=== PATIENT | female | born 1965 | race Caucasian/White ===

== ENCOUNTER 2017-10-15 01:33 | Emergency (ER) | payer SELFPAY ==
[2017-10-15] MEDS ORDERED: ASPIRIN PO ONE (02:28)
[2017-10-15] MEDS ORDERED: TYLENOL PO ONE (02:29)
--- NOTE | 2017-10-15 03:00 | Cat Scan Report ---
FINAL REPORT PROCEDURE: CT HEAD/BRAIN WO CON TECHNIQUE: Computerized tomography of the head was performed without contrast material. HISTORY: headache COMPARISON: No prior studies are available for comparison. FINDINGS: Skull and scalp: Normal. Paranasal sinuses: Normal. Ventricles and subarachnoid spaces: Normal. Cerebrum: No evidence of hemorrhage, acute infarction or mass . Cerebellum and brainstem: No evidence of hemorrhage, acute infarction or mass. Vasculature: Normal. Comments: None. IMPRESSION: Normal Examination
[2017-10-15 03:32] LABS: BUN/Creatinine Ratio 20; Blood Urea Nitrogen 16 mg/dL (7-17); Calcium 9.4 mg/dL (8.4-10.2); Hemolysis Index 18
[2017-10-15 04:19] LABS: Basophils % (Auto) 0.8 % (0.0-1.8); Eosinophils % (Auto) 1.5 % (0.0-4.3); Hematocrit 38.3 % (30.3-42.9); Hemoglobin 12.8 gm/dl (10.1-14.3); Mean Corpuscular HGB Conc 33 % (30-34); Mean Corpuscular Hemoglobin 28 pg (28-32); Mean Corpuscular Volume 85 fl (79-97); Platelet Count 341 K/mm3 (140-440); Red Blood Count 4.51 M/mm3 (3.65-5.03); Red Cell Distribution Width 13.6 % (13.2-15.2)
[2017-10-15 04:20] LABS: Basophils # (Auto) 0.1 K/mm3 (0.0-0.1); Eosinophils # (Auto) 0.2 K/mm3 (0.0-0.4); Lymphocytes # (Auto) 2.7 K/mm3 (1.2-5.4); Monocytes # (Auto) 0.9 K/mm3 (0.0-0.8)
[2017-10-15] MEDS ORDERED: ASPIRIN ONE (06:01)
--- NOTE | 2017-10-15 06:36 | Emergency Department Report ---
ED Chest Pain HPI - General Chief Complaint: Chest Pain Stated Complaint: CHEST PAIN HEAD PAIN Time Seen by Provider: 10/15/17 06:36 Source: patient Mode of arrival: Ambulatory Limitations: No Limitations - History of Present Illness MD Complaint: chest pain -: Sudden Onset: during rest Pain Location: substernal Pain Radiation: none Severity: mild Severity scale (0 -10): 3 Quality: aching Consistency: intermittent Improves With: nothing Worsens With: nothing Treatments Prior to Arrival: none Aspirin use within the Past 7 Days: (0) No - Related Data Previous Rx's Medication Instructions Recorded Last Taken Type Lisinopril [Zestril TAB] 40 mg PO QDAY #30 tablet 04/27/15 10/14/17 Rx Aspirin [Aspir-Low] 81 mg PO DAILY #30 tablet. 10/15/17 Unknown Rx Lisinopril/Hydrochlorothiazide 1 tab PO QDAY #30 tab 10/15/17 Unknown Rx [Zestoretic 20-25 mg] Allergies Allergy/AdvReac Type Severity Reaction Status Date / Time codeine Allergy Rash Verified 04/25/15 18:54 Heart Score - HEART Score History: Slightly suspicious EKG: Normal Age: 45-65 Risk factors: 1-2 risk factors Troponin: < normal limit HEART Score: 2 - Critical Actions Critical Actions: 0-3 pts:0.9-1.7%risk of adverse cardiac event.Candidate for discharge ED Review of Systems ROS: Stated complaint: CHEST PAIN HEAD PAIN Other details as noted in HPI Comment: All other systems reviewed and negative Constitutional: denies: chills, fever Eyes: denies: eye pain, eye discharge ENT: denies: ear pain, throat pain Respiratory: denies: cough, orthopnea, shortness of breath Cardiovascular: chest pain. denies: palpitations, dyspnea on exertion, orthopnea Endocrine: no symptoms reported Gastrointestinal: denies: abdominal pain, nausea, vomiting, diarrhea Genitourinary: denies: urgency, dysuria, frequency Musculoskeletal: denies: back pain, joint swelling Skin: denies: rash, lesions Neurological: denies: headache, weakness, numbness Psychiatric: denies: anxiety, depression Hematological/Lymphatic: denies: easy bleeding, easy bruising ED Past Medical Hx - Past Medical History Hx Hypertension: Yes Hx Congestive Heart Failure: No Hx Diabetes: No Hx Asthma: No Hx COPD: No - Surgical History Hx Cholecystectomy: Yes Hx Appendectomy: Yes Additional Surgical History: R SHOULDER, L EAR, Hysterectomy - Social History Smoking Status: Never Smoker Substance Use Type: None - Medications Home Medications: Home Medications Medication Instructions Recorded Confirmed Last Taken Type Lisinopril [Zestril TAB] 40 mg PO QDAY #30 tablet 04/27/15 10/15/17 10/14/17 Rx Aspirin [Aspir-Low] 81 mg PO DAILY #30 tablet. 10/15/17 Unknown Rx Lisinopril/Hydrochlorothiazide 1 tab PO QDAY #30 tab 10/15/17 Unknown Rx [Zestoretic 20-25 mg] ED Physical Exam - General Limitations: No Limitations General appearance: alert, in no apparent distress - Head Head exam: Present: atraumatic, normocephalic, normal inspection - Eye Eye exam: Present: normal appearance, PERRL, EOMI Pupils: Present: normal accommodation - ENT ENT exam: Present: normal exam, normal orophraynx, mucous membranes moist - Neck Neck exam: Present: normal inspection, full ROM. Absent: tenderness - Respiratory Respiratory exam: Present: normal lung sounds bilaterally. Absent: respiratory distress, wheezes, rales, rhonchi, stridor - Cardiovascular Cardiovascular Exam: Present: regular rate, normal rhythm, normal heart sounds - GI/Abdominal GI/Abdominal exam: Present: soft, normal bowel sounds. Absent: distended, tenderness, guarding, rebound, rigid - Extremities Exam Extremities exam: Present: normal inspection, full ROM, normal capillary refill. Absent: tenderness - Back Exam Back exam: Present: normal inspection, full ROM. Absent: tenderness - Neurological Exam Neurological exam: Present: alert, oriented X3, CN II-XII intact - Psychiatric Psychiatric exam: Present: normal affect, normal mood - Skin Skin exam: Present: warm, dry, intact, normal color. Absent: rash ED Course Vital Signs 10/15/17 10/15/17 10/15/17 02:20 06:53 06:56 Temperature 98.3 F 97.7 F Pulse Rate 84 68 Respiratory 16 18 Rate Blood Pressure 184/90 Blood Pressure 177/83 [Right] O2 Sat by Pulse 100 99 99 Oximetry 10/15/17 10/15/17 10/15/17 07:00 07:30 07:52 Temperature Pulse Rate 55 L 63 Respiratory 13 13 Rate Blood Pressure 156/86 165/72 172/85 Blood Pressure [Right] O2 Sat by Pulse 97 100 Oximetry 10/15/17 10/15/17 10/15/17 08:00 08:30 09:00 Temperature Pulse Rate 71 67 74 Respiratory 12 13 14 Rate Blood Pressure 172/73 158/85 157/80 Blood Pressure [Right] O2 Sat by Pulse 96 98 100 Oximetry 10/15/17 10/15/17 10/15/17 09:30 10:00 10:30 Temperature Pulse Rate 69 67 63 Respiratory 12 12 13 Rate Blood Pressure 147/77 154/79 158/77 Blood Pressure [Right] O2 Sat by Pulse 99 97 100 Oximetry 10/15/17 10/15/17 10/15/17 11:00 11:30 11:46 Temperature 97.8 F Pulse Rate 72 79 68 Respiratory 14 11 L 16 Rate Blood Pressure 149/83 140/101 Blood Pressure 140/101 [Right] O2 Sat by Pulse 100 97 100 Oximetry GUSTAVO score - Gustavo Score Age > 65: (0) No Aspirin use within the Past 7 Days: (0) No 3 or more CAD Risk Factors: (0) No 2 or more Angina events in past 24 hrs: (0) No Known CAD with more than 50% Stenosis: (0) No Elevated Cardiac Markers: (0) No ST Deviation Greater than 0.5mm: (0) No GUSTAVO Score: 0 ED Medical Decision Making - Lab Data Result diagrams: 10/15/17 03:00 10/15/17 03:00 - EKG Data -: EKG Interpreted by Ma EKG shows normal: sinus rhythm Rate: normal (88) - EKG Data When compared to previous EKG there are: previous EKG unavailable Interpretation: normal EKG, other (No STEMI) - Radiology Data Radiology results: report reviewed, image reviewed - Medical Decision Making Atypical Chest Pain. Hypertension. Critical care attestation.: If time is entered above; I have spent that time in minutes in the direct care of this critically ill patient, excluding procedure time. ED Disposition Clinical Impression: Chest pain Qualifiers: Chest pain type: unspecified Qualified Code(s): R07.9 - Chest pain, unspecified Hypertension Qualifiers: Hypertension type: unspecified Qualified Code(s): I10 - Essential (primary) hypertension Disposition: DC- TO HOME OR SELFCARE Is pt being admited?: No Does the pt Need Aspirin: Yes Condition: Stable Instructions: Chest Pain (ED), Hypertension (ED) Additional Instructions: Please follow up with the [facility] Schuster tomorrow morning. Return to the ED if your condition worsens. Prescriptions: Aspirin [Aspir-Low] 81 mg PO DAILY #30 tablet. Lisinopril/Hydrochlorothiazide [Zestoretic 20-25 mg] 1 tab PO QDAY #30 tab Referrals: PRIMARY CARE, [Primary Care Provider] - 3-5 Days Time of Disposition: 11:17
[2017-10-15] MEDS: ZESTRIL PO ONE ×3 (07:15→07:52)
--- NOTE | 2017-10-15 07:55 | XRay Report ---
AP CHEST: HISTORY: chest pain AP view of the chest demonstrates a normal mediastinal and cardiac contour with clear lungs and normal bony and soft tissue structures. IMPRESSION: Unremarkable AP chest.
[2017-10-15] MEDS ORDERED: TYLENOL ONE (11:31)
[2017-10-15 11:45] VITALS: BP 140/101
== END 2017-10-15 11:45 | disposition home or self-care (01) ==
LOC: ED 01:33
DX: R07.89 Other chest pain (principal); R51 Headache; I10 Essential (primary) hypertension; Z90.89 Acquired absence of other organs; Z90.49 Acquired absence of other specified parts of digestive tract; Z90.710 Acquired absence of both cervix and uterus; Z88.5 Allergy status to narcotic agent
CPT/HCPCS: 36415; 70450; 71045; 80048; 84484; 85025; 93005; 93010

== ENCOUNTER 2018-08-08 21:19 | Emergency (ER) | payer OTHER ==
[2018-08-08 21:39] VITALS: BP 156/87
--- NOTE | 2018-08-08 21:39 | Emergency Department Report ---
ED ENT HPI - General Chief complaint: Dental/Oral Stated complaint: TOOTH/EAR/HEADACHE Time Seen by Provider: 08/08/18 21:35 Source: patient Mode of arrival: Ambulatory Limitations: No Limitations - History of Present Illness Initial comments: 53 y/o female complains of toothache Complete antibiotics 1 week ago. Was seen by dentist and was told that she needed a root cancal. . Has been taking Ibuprofen. Does not have any further appt. MD complaint: tooth pain Location: tooth # Severity: severe Severity scale (0 -10): 10 - Related Data Previous Rx's Medication Instructions Recorded Last Taken Type Acetaminophen [Acetaminophen TAB] 650 mg PO Q4H PRN #10 tablet 02/06/18 Unknown Rx Aspirin 325 mg PO QDAY #30 tablet 02/06/18 Unknown Rx AtorvaSTATin [Lipitor] 40 mg PO QHS #30 tablet 02/06/18 Unknown Rx Lisinopril/Hydrochlorothiazide 1 tab PO QDAY #30 tab 02/06/18 Unknown Rx [Zestoretic 20-25 mg] Allergies Allergy/AdvReac Type Severity Reaction Status Date / Time codeine Allergy Rash Verified 04/25/15 18:54 ED Dental HPI - General Chief complaint: Dental/Oral Stated complaint: TOOTH/EAR/HEADACHE Time Seen by Provider: 08/08/18 21:35 Source: patient Mode of arrival: Ambulatory Limitations: No Limitations - Related Data Previous Rx's Medication Instructions Recorded Last Taken Type Acetaminophen [Acetaminophen TAB] 650 mg PO Q4H PRN #10 tablet 02/06/18 Unknown Rx Aspirin 325 mg PO QDAY #30 tablet 02/06/18 Unknown Rx AtorvaSTATin [Lipitor] 40 mg PO QHS #30 tablet 02/06/18 Unknown Rx Lisinopril/Hydrochlorothiazide 1 tab PO QDAY #30 tab 02/06/18 Unknown Rx [Zestoretic 20-25 mg] Allergies Allergy/AdvReac Type Severity Reaction Status Date / Time codeine Allergy Rash Verified 04/25/15 18:54 ED Review of Systems ROS: Stated complaint: TOOTH/EAR/HEADACHE Other details as noted in HPI Comment: All other systems reviewed and negative ED Past Medical Hx - Past Medical History Previous Medical History?: Yes Hx Hypertension: Yes Hx CVA: (h/o TIAs, most recent oct/nov 2017) Hx Congestive Heart Failure: No Hx Diabetes: No Hx Asthma: No Hx COPD: No - Surgical History Past Surgical History?: Yes Hx Cholecystectomy: Yes Hx Appendectomy: Yes Additional Surgical History: R SHOULDER, L EAR, Hysterectomy - Social History Smoking Status: Never Smoker - Medications Home Medications: Home Medications Medication Instructions Recorded Confirmed Last Taken Type Acetaminophen [Acetaminophen TAB] 650 mg PO Q4H PRN #10 tablet 02/06/18 Unknown Rx Aspirin 325 mg PO QDAY #30 tablet 02/06/18 Unknown Rx AtorvaSTATin [Lipitor] 40 mg PO QHS #30 tablet 02/06/18 Unknown Rx Lisinopril/Hydrochlorothiazide 1 tab PO QDAY #30 tab 02/06/18 Unknown Rx [Zestoretic 20-25 mg] ED Physical Exam - General Limitations: No Limitations General appearance: alert, in no apparent distress - Head Head exam: Present: atraumatic, normocephalic - Eye Eye exam: Present: normal appearance - ENT ENT exam: Present: mucous membranes moist - Expanded ENT Exam Expanded Teeth exam: Present: dental tenderness # (22) - Extremities Exam Extremities exam: Present: normal inspection - Back Exam Back exam: Present: normal inspection - Neurological Exam Neurological exam: Present: alert, oriented X3, normal gait ED Medical Decision Making - Medical Decision Making 53 y/o female come in for tooth ache. Referral to dental clinic. Over the counter pain medications. Critical care attestation.: If time is entered above; I have spent that time in minutes in the direct care of this critically ill patient, excluding procedure time. ED Disposition Clinical Impression: Dental implant pain Disposition: DC- TO HOME OR SELFCARE Is pt being admited?: No Does the pt Need Aspirin: No Condition: Stable Instructions: Toothache (ED) Additional Instructions: Follow up with a dentist. Take over the counter ibuprofen or Tylenol. Referrals: [facility] [Outside] - 3-5 Days [facility] [Outside] - 3-5 Days [facility] [Outside] - 3-5 Days
== END 2018-08-08 21:50 | disposition home or self-care (01) ==
LOC: ED 21:19
DX: M27.69 Other endosseous dental implant failure (principal); I10 Essential (primary) hypertension; Z90.49 Acquired absence of other specified parts of digestive tract; Z90.710 Acquired absence of both cervix and uterus; Z98.890 Other specified postprocedural states; Z79.82 Long term (current) use of aspirin; Z79.899 Other long term (current) drug therapy; Z88.6 Allergy status to analgesic agent
CPT/HCPCS: 99282

== ENCOUNTER 2018-10-15 02:36 | Emergency (ER) | payer OTHER ==
[2018-10-15 03:05] LABS: Basophils # (Auto) 0.1 K/mm3 (0.0-0.1); Basophils % (Auto) 0.8 % (0.0-1.8); Eosinophils # (Auto) 0.1 K/mm3 (0.0-0.4); Eosinophils % (Auto) 1.3 % (0.0-4.3); Hematocrit 37.3 % (30.3-42.9); Hemoglobin 12.6 gm/dl (10.1-14.3); Lymphocytes % (Auto) 33.6 % (13.4-35.0); Mean Corpuscular HGB Conc 34 % (30-34); Mean Corpuscular Volume 85 fl (79-97); Monocytes # (Auto) 0.6 K/mm3 (0.0-0.8); Monocytes % (Auto) 6.6 % (0.0-7.3); Platelet Count 311 K/mm3 (140-440); Red Blood Count 4.39 M/mm3 (3.65-5.03); Red Cell Distribution Width 13.1 % (13.2-15.2)
[2018-10-15 03:32] LABS: Alanine Aminotransferase 10 units/L (7-56); Albumin 3.8 g/dL (3.9-5); BUN/Creatinine Ratio 16; Blood Urea Nitrogen 13 mg/dL (7-17); Calcium 9.2 mg/dL (8.4-10.2); Hemolysis Index 3
[2018-10-15 04:41] LABS: Bilirubin,Urine NEG (Negative); Blood,Urine NEG (Negative); Color,Urine Yellow (Yellow); Mucus,Urine FEW /HPF; Protein,Urine <15 mg/dL mg/dL (Negative); Urobilinogen,Urine < 2.0 mg/dL (<2.0)
[2018-10-15] MEDS ORDERED: MORPHINE IV PRN (05:22)
[2018-10-15] MEDS ORDERED: ZOFRAN IV ONE (05:22)
[2018-10-15] MEDS ORDERED: PEPCID IV ONE (05:22)
--- NOTE | 2018-10-15 07:20 | Emergency Department Report ---
<CAMMY STEIN - Last Filed: 10/15/18 12:03> ED Abdominal Pain HPI - General Chief Complaint: Abdominal Pain Stated Complaint: SEVERE HEADACHE - Related Data Previous Rx's Medication Instructions Recorded Last Taken Type Acetaminophen [Acetaminophen TAB] 650 mg PO Q4H PRN #10 tablet 02/06/18 Unknown Rx Aspirin 325 mg PO QDAY #30 tablet 02/06/18 Unknown Rx AtorvaSTATin [Lipitor] 40 mg PO QHS #30 tablet 02/06/18 Unknown Rx Lisinopril/Hydrochlorothiazide 1 tab PO QDAY #30 tab 02/06/18 Unknown Rx [Zestoretic 20-25 mg] Hyoscyamine Subl [Levsin Sl 0.125 0.125 mg SL Q6HR PRN #20 tab 10/15/18 Unknown Rx TAB] Ondansetron [Zofran ODT TAB] 8 mg PO Q12HR #14 tab.rapdis 10/15/18 Unknown Rx Allergies Allergy/AdvReac Type Severity Reaction Status Date / Time codeine Allergy Rash Verified 04/25/15 18:54 ED Past Medical Hx - Medications Home Medications: Home Medications Medication Instructions Recorded Confirmed Last Taken Type Acetaminophen [Acetaminophen TAB] 650 mg PO Q4H PRN #10 tablet 02/06/18 Unknown Rx Aspirin 325 mg PO QDAY #30 tablet 02/06/18 Unknown Rx AtorvaSTATin [Lipitor] 40 mg PO QHS #30 tablet 02/06/18 Unknown Rx Lisinopril/Hydrochlorothiazide 1 tab PO QDAY #30 tab 02/06/18 Unknown Rx [Zestoretic 20-25 mg] Hyoscyamine Subl [Levsin Sl 0.125 0.125 mg SL Q6HR PRN #20 tab 10/15/18 Unknown Rx TAB] Ondansetron [Zofran ODT TAB] 8 mg PO Q12HR #14 tab.rapdis 10/15/18 Unknown Rx ED Medical Decision Making - Lab Data Result diagrams: 10/15/18 02:53 10/15/18 02:53 - Medical Decision Making 53-year-old [place] female with left lower quadrant pain. Pain was improved with medications. CT scan revealed no acute processes. No diarrhea, no nausea, no vomiting, no hemoptysis, no hematemesis, no hematochezia. Plan is to discharge patient home on some Levsin and Zofran and have her to follow-up with GI for reevaluation and further treatment options. She's been instructed to return to emergency department should she experience any fever, severe pain, intractable nausea, vomiting, any worsening symptoms to suggest condition is worsening. ED Disposition Clinical Impression: Acute abdominal pain in left lower quadrant Abdominal pain Qualifiers: Abdominal location: left lower quadrant Qualified Code(s): R10.32 - Left lower quadrant pain Disposition: TO HOME OR SELFCARE Condition: Stable Instructions: Abdominal Pain (ED) Prescriptions: Hyoscyamine Subl [Levsin Sl 0.125 TAB] 0.125 mg SL Q6HR PRN #20 tab PRN Reason: abdominal cramps and spasms Ondansetron [Zofran ODT TAB] 8 mg PO Q12HR #14 tab.brennon Referrals: [facility] [Provider Group] - 3-5 Days <ANIL SNELL - Last Filed: 10/18/18 06:30> ED Abdominal Pain HPI - General Source: patient Mode of arrival: Ambulatory Limitations: No Limitations - History of Present Illness Initial Comments: Patient is a 53-year-old -[place] female with a history of hypertension who presents to the ED with acute onset persistent severe left lower quadrant abdominal pain with nausea and vomiting for the last 1 week intermittently. Patient states that her symptoms got worse the last 24 hours. Patient denies vaginal bleeding, dysuria, urinary frequency and urgency, dizziness, headache, chest pain, shortness of breath, low back pain, vaginal discharge or low back pain. MD Complaint: abdominal pain, other (nausea and vomiting) -: Gradual, week(s) (1) Location: LLQ, suprapubic Radiation: LLQ, suprapubic Migration to: no migration Severity: severe Severity scale (0 -10): 7 Quality: cramping, aching, sharp Consistency: intermittent Improves With: nothing Worsens With: nothing Associated Symptoms: denies other symptoms, nausea, vomiting. denies: diarrhea, fever, chills, constipation, dysuria, hematemesis, hematochezia, melena, hematuria, anorexia, syncope ED Review of Systems ROS: Stated complaint: SEVERE HEADACHE Other details as noted in HPI Constitutional: denies: chills, fever Eyes: denies: eye pain, eye discharge, vision change ENT: denies: ear pain, throat pain Respiratory: denies: cough, shortness of breath, wheezing Cardiovascular: denies: chest pain, palpitations Endocrine: no symptoms reported Gastrointestinal: abdominal pain, nausea, vomiting. denies: diarrhea, constipation, hematemesis, melena Genitourinary: denies: urgency, dysuria, discharge Musculoskeletal: denies: back pain, joint swelling, arthralgia Skin: denies: rash, lesions Neurological: denies: headache, weakness, paresthesias Psychiatric: denies: anxiety, depression Hematological/Lymphatic: denies: easy bleeding, easy bruising ED Past Medical Hx - Past Medical History Previous Medical History?: Yes Hx Hypertension: Yes Hx CVA: Yes (h/o TIAs, most recent oct/nov 2017) Hx Congestive Heart Failure: No Hx Diabetes: No Hx Asthma: No Hx COPD: No - Surgical History Past Surgical History?: Yes Hx Cholecystectomy: Yes Hx Appendectomy: Yes Additional Surgical History: R SHOULDER, L EAR, Hysterectomy - Social History Smoking Status: Never Smoker Substance Use Type: None ED Physical Exam - General Limitations: No Limitations General appearance: alert, in no apparent distress - Head Head exam: Present: atraumatic, normocephalic, normal inspection - Eye Eye exam: Present: normal appearance, PERRL, EOMI. Absent: scleral icterus, conjunctival injection, nystagmus Pupils: Present: normal accommodation - ENT ENT exam: Present: normal exam, normal orophraynx, mucous membranes moist, TM's normal bilaterally, normal external ear exam - Neck Neck exam: Present: normal inspection, full ROM - Respiratory Respiratory exam: Present: normal lung sounds bilaterally. Absent: respiratory distress, wheezes, rales, rhonchi, stridor, chest wall tenderness, accessory muscle use - Cardiovascular Cardiovascular Exam: Present: regular rate, normal rhythm, normal heart sounds. Absent: systolic murmur, diastolic murmur, rubs, gallop - GI/Abdominal GI/Abdominal exam: Present: soft, tenderness (palpable left lower quadrant abdominal tenderness, no guarding or rebound), normal bowel sounds. Absent: guarding, rebound, hyperactive bowel sounds, hypoactive bowel sounds, organomegaly - Rectal Rectal exam: Present: deferred - Extremities Exam Extremities exam: Present: normal inspection, full ROM, normal capillary refill - Back Exam Back exam: Present: normal inspection, full ROM. Absent: CVA tenderness (L), muscle spasm - Neurological Exam Neurological exam: Present: alert, oriented X3, CN II-XII intact, normal gait, reflexes normal - Psychiatric Psychiatric exam: Present: normal affect, normal mood - Skin Skin exam: Present: warm, dry, intact, normal color. Absent: rash ED Course Vital Signs 10/15/18 10/15/18 02:42 09:21 Temperature 98.1 F 97.6 F Pulse Rate 70 69 Respiratory 16 18 Rate Blood Pressure 193/99 143/79 O2 Sat by Pulse 99 99 Oximetry - Reevaluation(s) Reevaluation #1: 10/15/18 07:18 This is a 53 year-old female who presents to the ED with left lower quadrant abdominal pain with nausea and vomiting. In the ED, patient is alert and oriented 3 and is not in distress but appears to be in pain. Lab test results are reviewed and are all unremarkable. Abdomen pelvis CT scan with contrast is pending. Patient was treated for pain in the ED and on reevaluation, patient's pain is well-controlled with medication. Will review the imaging report and make appropriate disposition based on the patient's findings. Patient care transferred to Mr. Jim Stein PA-C at shift change at 0700 hours. He shall review imaging report and make appropriate disposition. 10/15/18 07:23 ED Medical Decision Making - Lab Data Result diagrams: 10/15/18 02:53 10/15/18 02:53 - Medical Decision Making This is a 53 year-old female who presents to the ED with left lower quadrant abdominal pain with nausea and vomiting. In the ED, patient is alert and oriented 3 and is not in distress but appears to be in pain. Lab test results are reviewed and are all unremarkable. Abdomen pelvis CT scan with contrast is pending. Patient was treated for pain in the ED and on reevaluation, patient's pain is well-controlled with medication. We will review the imaging report and make appropriate disposition based on the patient's findings. Patient care was transferred to Maurisio SAMANIEGO at shift change at 0700 hours. He review the imaging report and make appropriate disposition accord ingly. - Differential Diagnosis abdominal pain; diverticulitis; acute UTI; Acute Appendicitis; kidney stone Critical care attestation.: If time is entered above; I have spent that time in minutes in the direct care of this critically ill patient, excluding procedure time. ED Disposition Is pt being admited?: No Does the pt Need Aspirin: No
--- NOTE | 2018-10-15 08:47 | Cat Scan Report ---
CT ABDOMEN AND PELVIS WITH CONTRAST HISTORY: Generalized abdominal pain COMPARISON: 04/26/2015 TECHNIQUE: Axial CT images were obtained through the abdomen and pelvis after 100 cc of Omnipaque 300 intravenously. Sagittal and coronal reformatted images. All CT scans at this location are performed using CT dose reduction for ALARA by means of automated exposure control. FINDINGS: CT ABDOMEN: Lung Bases: Clear. Liver: No significant abnormality. Biliary: Cholecystectomy has been performed. There is mild diffuse biliary prominence which is probab ly secondary to cholecystectomy. Spleen: No significant abnormality. Unenlarged. Pancreas: No significant abnormality. Adrenals: No significant abnormality. Kidneys: No significant abnormality. Lymphatics: No lymphadenopathy. Vasculature: No significant abnormality. Bowel/Peritoneum: No evidence for bowel obstruction or focal inflammation. Mild diverticulosis of the distal colon is noted. The remaining bowel loops are unremarkable. Appendectomy changes are suspecte d. CT PELVIS: : The bladder and distal ureters are unremarkable. Hysterectomy changes are identified. Osseous Structures: No significant abnormality. Additional Findings: None IMPRESSION: No acute process is identified in the abdomen or pelvis. Cholecystectomy and appendectomy. Mild diverticulosis of the distal colon. No significant change is appreciated since 04/26/2015. Signer Name: Jamey Simon Jr, MD Signed: 10/15/2018 8:42 AM Workstation Name: [id number]
[2018-10-15 09:30] VITALS: BP 143/79
== END 2018-10-15 11:26 | disposition home or self-care (01) ==
LOC: ED 02:36
DX: R10.32 Left lower quadrant pain (principal); R11.2 Nausea with vomiting, unspecified; I10 Essential (primary) hypertension; Z86.73 Personal history of transient ischemic attack (TIA), and cerebral infarction without residual deficits; Z88.5 Allergy status to narcotic agent; Z79.899 Other long term (current) drug therapy
CPT/HCPCS: 36415; 74177; 80053; 81001; 83690; 85025; 96374; 96375; 99284; J2270; J2405; Q9967

== ENCOUNTER 2019-04-24 14:56 | Emergency (ER) | payer OTHER ==
--- NOTE | 2019-04-24 16:03 | Emergency Department Report ---
ED General Adult HPI - General Chief complaint: Weakness Stated complaint: WEAKNESS Time Seen by Provider: 04/24/19 15:56 Source: patient Mode of arrival: Ambulatory Limitations: No Limitations - History of Present Illness Initial comments: Patient is 54 years old female with history of hypertension and questionable history of TIA. Patient brought to the emergency room via EMS for evaluation of sudden onset of single episode of syncope. Patient stated that she came home and all of a sudden she became dizzy and she passed out. Patient stated that she called her friends and friends came to her home in which she came she found her passed out. Patient stated that she had similar episode 3 months ago. She stated that she had several episodes before that. Patient denies any chest pain, shortness of breath, headache. Patient stated that she became nauseated and vomited one time. Patient stated that she is back to normal now. - Related Data Previous Rx's Medication Instructions Recorded Last Taken Type Acetaminophen [Acetaminophen TAB] 650 mg PO Q4H PRN #10 tablet 02/06/18 Unknown Rx Aspirin 325 mg PO QDAY #30 tablet 02/06/18 Unknown Rx AtorvaSTATin [Lipitor] 40 mg PO QHS #30 tablet 02/06/18 Unknown Rx Lisinopril/Hydrochlorothiazide 1 tab PO QDAY #30 tab 02/06/18 Unknown Rx [Zestoretic 20-25 mg] Hyoscyamine Subl [Levsin Sl 0.125 0.125 mg SL Q6HR PRN #20 tab 10/15/18 Unknown Rx TAB] Ondansetron [Zofran ODT TAB] 8 mg PO Q12HR #14 tab.rapdis 10/15/18 Unknown Rx Allergies Allergy/AdvReac Type Severity Reaction Status Date / Time codeine Allergy Rash Verified 04/25/15 18:54 ED Review of Systems ROS: Stated complaint: WEAKNESS Other details as noted in HPI Comment: All other systems reviewed and negative Constitutional: denies: chills, fever Respiratory: denies: cough Cardiovascular: denies: chest pain, palpitations Gastrointestinal: denies: abdominal pain, nausea, vomiting ED Past Medical Hx - Past Medical History Previous Medical History?: Yes Hx Hypertension: Yes Hx CVA: Yes (h/o TIAs, most recent oct/nov 2017) Hx Congestive Heart Failure: No Hx Diabetes: No Hx Asthma: No Hx COPD: No - Surgical History Past Surgical History?: Yes Hx Cholecystectomy: Yes Hx Appendectomy: Yes Additional Surgical History: R SHOULDER, L EAR, Hysterectomy - Social History Smoking Status: Never Smoker Substance Use Type: None - Medications Home Medications: Home Medications Medication Instructions Recorded Confirmed Last Taken Type Acetaminophen [Acetaminophen TAB] 650 mg PO Q4H PRN #10 tablet 02/06/18 Unknown Rx Aspirin 325 mg PO QDAY #30 tablet 02/06/18 Unknown Rx AtorvaSTATin [Lipitor] 40 mg PO QHS #30 tablet 02/06/18 Unknown Rx Lisinopril/Hydrochlorothiazide 1 tab PO QDAY #30 tab 02/06/18 Unknown Rx [Zestoretic 20-25 mg] Hyoscyamine Subl [Levsin Sl 0.125 0.125 mg SL Q6HR PRN #20 tab 10/15/18 Unknown Rx TAB] Ondansetron [Zofran ODT TAB] 8 mg PO Q12HR #14 tab.rapdis 10/15/18 Unknown Rx ED Physical Exam - General Limitations: No Limitations General appearance: alert, in no apparent distress - Head Head exam: Present: atraumatic, normocephalic, normal inspection - Eye Eye exam: Present: normal appearance - ENT ENT exam: Present: normal exam, normal orophraynx, mucous membranes moist - Neck Neck exam: Present: normal inspection, full ROM. Absent: tenderness, meningismus - Respiratory Respiratory exam: Present: normal lung sounds bilaterally - Cardiovascular Cardiovascular Exam: Present: regular rate, normal rhythm, normal heart sounds - GI/Abdominal GI/Abdominal exam: Present: soft, normal bowel sounds. Absent: distended, tenderness, guarding, rebound, rigid, organomegaly, mass, bruit, pulsatile mass, hernia - Extremities Exam Extremities exam: Present: normal inspection, full ROM, normal capillary refill. Absent: pedal edema, calf tenderness - Back Exam Back exam: Present: normal inspection, full ROM. Absent: CVA tenderness (R), CVA tenderness (L) - Neurological Exam Neurological exam: Present: alert, oriented X3, CN II-XII intact, normal gait, reflexes normal. Absent: motor sensory deficit - Psychiatric Psychiatric exam: Present: normal mood - Skin Skin exam: Present: warm, intact, normal color ED Course Vital Signs 04/24/19 04/24/19 15:30 17:18 Temperature 97.9 F Pulse Rate 62 64 Respiratory 16 16 Rate Blood Pressure 135/67 Blood Pressure 157/77 [Left] O2 Sat by Pulse 100 100 Oximetry ED Medical Decision Making - Lab Data Result diagrams: 04/24/19 16:07 04/24/19 16:07 - EKG Data -: EKG Interpreted by Me EKG shows normal: sinus rhythm Rate: bradycardia - EKG Data Interpretation: no acute changes - Medical Decision Making Patient is 54 years old female with history of hypertension and questionable history of TIA. Patient brought to the emergency room via EMS for evaluation of sudden onset of single episode of syncope. Patient stated that she came home and all of a sudden she became dizzy and she passed out. Patient stated that she called her friends and friends came to her home in which she came she found her passed out. Patient stated that she had similar episode 3 months ago. She stated that she had several episodes before that. Patient denies any chest pain, shortness of breath, headache. Patient stated that she became nauseated and vomited one time. Patient stated that she is back to normal now. Patient remained asymptomatic in the emergency room. No syncopal episode observed. Vital signs remained stable. Patient still denying any chest pain, headache, shortness of breath, nausea or vomiting. Labs reviewed and is unremarkable. EKG showed no ST elevation or depression. Previous medical records reviewed and patient had a negative MRI. Patient advised to follow-up with a neurologist since this is a recurring event, possibility of seizure is raised, patient advised not to drive or operate heavy machinery. Patient given Dr. Chicas to follow-up with for further management. Patient also advised to return to the ER if she develop any new symptoms. Critical care attestation.: If time is entered above; I have spent that time in minutes in the direct care of this critically ill patient, excluding procedure time. ED Disposition Clinical Impression: Syncope and collapse Disposition: DC-01 TO HOME OR SELFCARE Is pt being admited?: No Condition: Stable Instructions: Syncope (ED) Referrals: MYAH CHICAS MD [Referring] - 3-5 Days
[2019-04-24 16:30] LABS: Basophils # (Auto) 0.1 K/mm3 (0.0-0.1); Basophils % (Auto) 0.5 % (0.0-1.8); Eosinophils # (Auto) 0.1 K/mm3 (0.0-0.4); Eosinophils % (Auto) 0.6 % (0.0-4.3); Hematocrit 38.6 % (30.3-42.9); Hemoglobin 12.6 gm/dl (10.1-14.3); Lymphocytes # (Auto) 1.5 K/mm3 (1.2-5.4); Lymphocytes % (Auto) 14.8 % (13.4-35.0); Mean Corpuscular HGB Conc 33 % (30-34); Mean Corpuscular Volume 85 fl (79-97); Monocytes # (Auto) 0.6 K/mm3 (0.0-0.8); Monocytes % (Auto) 5.5 % (0.0-7.3); Platelet Count 342 K/mm3 (140-440); Red Blood Count 4.54 M/mm3 (3.65-5.03); Red Cell Distribution Width 13.7 % (13.2-15.2)
[2019-04-24 16:41] LABS: Alanine Aminotransferase 15 units/L (7-56); Albumin 3.7 g/dL (3.9-5); BUN/Creatinine Ratio 13; Blood Urea Nitrogen 10 mg/dL (7-17); Calcium 9.3 mg/dL (8.4-10.2); Hemolysis Index 6
[2019-04-24 16:47] LABS: Partial Thromboplastin Time 24.2 Sec. (24.2-36.6)
[2019-04-24 16:59] LABS: Bilirubin,Direct < 0.2 mg/dL (0-0.2)
[2019-04-24 17:18] VITALS: BP 157/77
== END 2019-04-24 18:38 | disposition home or self-care (01) ==
LOC: ED 14:56
DX: R55 Syncope and collapse (principal); I10 Essential (primary) hypertension; Z88.6 Allergy status to analgesic agent; Z79.82 Long term (current) use of aspirin; Z79.899 Other long term (current) drug therapy; Z86.73 Personal history of transient ischemic attack (TIA), and cerebral infarction without residual deficits; Z90.49 Acquired absence of other specified parts of digestive tract; Z90.710 Acquired absence of both cervix and uterus; Z98.890 Other specified postprocedural states
CPT/HCPCS: 36415; 80048; 80076; 85025; 85379; 85610; 85730; 93005; 93010; 99283

== ENCOUNTER 2020-07-05 15:44 | Outpatient (CLI) | payer OTHER ==
[2020-07-05 16:17] LABS: Basophils % (Auto) 0.5 % (0.0-1.8); Eosinophils # (Auto) 0.2 K/mm3 (0.0-0.4); Eosinophils % (Auto) 2.5 % (0.0-4.3); Hematocrit 39.4 % (30.3-42.9); Hemoglobin 13.3 gm/dl (10.1-14.3); Lymphocytes # (Auto) 2.4 K/mm3 (1.2-5.4); Lymphocytes % (Auto) 31.4 % (13.4-35.0); Mean Corpuscular HGB Conc 34 % (30-34); Mean Corpuscular Volume 85 fl (79-97); Monocytes # (Auto) 0.6 K/mm3 (0.0-0.8); Monocytes % (Auto) 7.7 % (0.0-7.3); Platelet Count 296 K/mm3 (140-440); Red Blood Count 4.64 M/mm3 (3.65-5.03); Red Cell Distribution Width 13.6 % (13.2-15.2)
[2020-07-05 16:36] LABS: Alanine Aminotransferase 16 units/L (7-56); Albumin 3.8 g/dL (3.9-5); Blood Urea Nitrogen 12 mg/dL (7-17); Calcium 9.1 mg/dL (8.4-10.2); Chol/HDL Ratio 7.02 %; HDL Cholesterol 35 mg/dL (40-59); Hemolysis Index 6; LDL Cholesterol,Direct 179 mg/dL (50-130); Uric Acid 6.8 mg/dL (3.5-7.6)
[2020-07-05 16:38] LABS: BUN/Creatinine Ratio 17
[2020-07-05 17:18] LABS: Erythrocyte Sedimentation Rate 45 mm/Hr (0-20)
[2020-07-11 05:51] LABS: Vitamin D, 25-OH, D2 <4 ng/mL
[2020-07-12 00:56] LABS: ANA Screen, IFA Negative (Negative)
== END 2020-07-05 15:45 | disposition home or self-care (01) ==
LOC: LAB 15:44
PROVIDERS: ATTEND Internal Medicine
DX: Z13.29 Encounter for screening for other suspected endocrine disorder (principal); Z13.1 Encounter for screening for diabetes mellitus; Z00.00 Encounter for general adult medical examination without abnormal findings; M13.0 Polyarthritis, unspecified; E78.5 Hyperlipidemia, unspecified
CPT/HCPCS: 36415; 80053; 80061; 82306; 83036; 84550; 85025; 85652; 86038; 86140; 86431

== ENCOUNTER 2020-08-02 11:04 | Outpatient (CLI) | payer OTHER ==
--- NOTE | 2020-08-02 14:04 | Mammography Report ---
DEXA BONE DENSITY SCAN INDICATION / CLINICAL INFORMATION: ROUTINE. 55 years Female COMPARISON: None available. LUMBAR SPINE, L1-L4: - Bone mineral density (BMD) = 1.139 g/cm2. - T-score = 0.8 - Z-score = 2.0 Change (%) since most recent prior (if available): None available. LEFT HIP, : - Bone mineral density (BMD) = 0.957 g/cm2. - T-score = 1 - Z-score = 1.8 Change (%) since most recent prior (if available): None available. IMPRESSION: 1. WHO Classification: Normal bone density. Fracture Risk: Not Increased. Note: 10-Year Fracture Risk (FRAX) not reported. This DEXA unit lacks FRAX functionality. BMD Reporting Guidelines (ISCD, 2015) BMD Reporting in Postmenopausal Women and in Men Age 50 and Older - T-scores are preferred. - The WHO densitometric classification is applicable. BMD Reporting in Females Prior to Menopause and in Males Younger Than Age 50 - Z-scores, not T-scores, are preferred. This is particularly important in children. - A Z-score of -2.0 or lower is defined as below the expected range for age, and a Z-score above -2.0 is within the expected range for age. - Osteoporosis cannot be diagnosed in men under age 50 on the basis of BMD alone. - The WHO diagnostic criteria may be applied to women in the menopausal transition. http://www.iscd.org/official-positions/2764-dlrf-xhvczwqb-positions-adult/ Signer Name: Eliu Ramirez MD Signed: 08/02/2020 1:59 PM Workstation Name: [id number]
== END 2020-08-02 11:05 | disposition home or self-care (01) ==
LOC: MAMMO 11:04
PROVIDERS: ATTEND Internal Medicine
DX: M85.88 Other specified disorders of bone density and structure, other site (principal)
CPT/HCPCS: 77080

== ENCOUNTER 2021-05-14 20:30 | Inpatient (IN) | payer OTHER ==
[2021-05-14] MEDS ORDERED: SODIUM CHLORIDE 0.9% 50 ML IVPB IV ONE (20:46)
[2021-05-14] MEDS ORDERED: ALTEPLASE 100 MG INJ KIT IV ONE ×2 (20:46)
--- NOTE | 2021-05-14 20:48 | Emergency Department Report ---
HPI - General Time Seen by Provider: 05/14/21 20:34 - HPI HPI: Charge nurse triage/room 2 The patient is a 56-year-old female present with a chief complaint of left-sided weakness. Last known well time was approximately 19:50. Patient complains of weakness of left arm and left leg. Patient also complains of decreased sensation light touch of the left upper and left lower extremity. Patient is soft-spoken but answers questions appropriately ED Past Medical Hx - Past Medical History Hx Hypertension: Yes Hx CVA: Yes (h/o TIAs, most recent nov 2017) - Surgical History Hx Cholecystectomy: Yes Hx Appendectomy: Yes Additional Surgical History: R SHOULDER, L EAR, Hysterectomy - Family History Family history: no significant - Social History Smoking Status: Never Smoker Substance Use Type: None - Medications Home Medications: Home Medications Medication Instructions Recorded Confirmed Last Taken Type Acetaminophen [Acetaminophen TAB] 650 mg PO Q4H PRN #10 tablet 02/06/18 Unknown Rx Aspirin 325 mg PO QDAY #30 tablet 02/06/18 Unknown Rx AtorvaSTATin [Lipitor] 40 mg PO QHS #30 tablet 02/06/18 Unknown Rx Lisinopril/Hydrochlorothiazide 1 tab PO QDAY #30 tab 02/06/18 Unknown Rx [Zestoretic 20-25 mg] Hyoscyamine Subl [Levsin Sl 0.125 0.125 mg SL Q6HR PRN #20 tab 10/15/18 Unknown Rx TAB] Ondansetron [Zofran ODT TAB] 8 mg PO Q12HR #14 tab.rapdis 10/15/18 Unknown Rx ED Review of Systems ROS: Stated complaint: CODE STROKE Other details as noted in HPI Constitutional: no symptoms reported Eyes: denies: eye pain ENT: denies: throat pain Respiratory: no symptoms reported Cardiovascular: denies: chest pain Endocrine: no symptoms reported Gastrointestinal: denies: abdominal pain Genitourinary: denies: dysuria Musculoskeletal: denies: back pain Neurological: weakness, paresthesias Physical Exam - Physical Exam Physical Exam: GENERAL: The patient is well-developed well-nourished female lying on stretcher soft-spoken but not appearing to be in acute distress. [] HEENT: Normocephalic. Atraumatic. Extraocular motions are intact. Patient has moist mucous membranes. NECK: Supple. Trachea midline CHEST/LUNGS: Clear to auscultation. There is no respiratory distress noted. HEART/CARDIOVASCULAR: Regular. There is no tachycardia. There is no gallop rub or murmur. ABDOMEN: Abdomen is soft, nontender. Patient has normal bowel sounds. There is no abdominal distention. SKIN: There is no rash. There is no edema. There is no diaphoresis. NEURO: The patient is awake, alert, and oriented. The patient is cooperative. The patient has a left hemiparesis. Decreased sensation to the left upper extremity left lower extremity when compared to the right. The patient has normal speech. GCS 15 MUSCULOSKELETAL: There is no evidence of acute injury. ED Course - Consultations Consultation #1: 05/14/21 20:46 Case discussed with telemetry neurologist-recommends administering TPA. NIHSS = 9 ED Medical Decision Making - Lab Data Result diagrams: 05/14/21 20:55 05/14/21 20:55 Laboratory Tests 05/14/21 05/14/21 05/14/21 20:55 20:55 20:55 WBC 10.6 RBC 4.42 Hgb 12.8 Hct 36.7 MCV 83 MCH 29 MCHC 35 H RDW 13.2 Plt Count 278 Lymph % (Auto) 25.1 [place] % (Auto) 7.3 Eos % (Auto) 1.6 Baso % (Auto) 0.7 Lymph # (Auto) 2.7 [place] # (Auto) 0.8 Eos # (Auto) 0.2 Baso # (Auto) 0.1 Seg Neutrophils % 65.3 Seg Neutrophils # 6.9 PT 13.2 INR 0.91 APTT 23.8 L Thrombin Time 17.7 Sodium 133 L Potassium 3.7 Chloride 98.5 Carbon Dioxide 24 Anion Gap 14 BUN 13 Creatinine 0.8 Estimated GFR > 60 BUN/Creatinine Ratio 16 Glucose 159 H Calcium 9.1 - EKG Data -: EKG Interpreted by Tn EKG shows normal: sinus rhythm, axis Rate: normal - EKG Data When compared to previous EKG there are: previous EKG unavailable Interpretation: other (No ischemic changes seen) - Radiology Data Radiology results: report reviewed (CT head, CTA brain, CTA neck), image reviewed (CT head, CTA brain, CTA neck) [facility] [address] [place] [address] Cat Scan Report Signed Patient: MARINO GRACIA MR#: [id number] 618 : 1965 Acct:[id number] Age/Sex: 56 / F ADM Date: 05/14/21 Loc: ED Attending Dr: Ordering Physician: ASTON GARRETT MD Date of Service: 05/14/21 Procedure(s): CT head/brain wo con Accession Number(s): [id number] cc: ASTON GARRETT MD CT head/brain wo con INDICATION / CLINICAL INFORMATION: 56 years Female; Left-sided weakness. TECHNIQUE: Routine CT head without contrast. All CT scans at this location are performed using CT dose reduction for ALARA by means of automated exposure control. COMPARISON: None. FINDINGS: BRAIN / INTRACRANIAL CONTENTS: The brain parenchyma appears to demonstrate appropriate attenuation for age. This mild cerebral atrophy. The ventricular system is correspondingly appropriate in size and configuration. There is no clear CT evidence of acute intracranial hemorrhage or significant mass effect. ORBITS: No significant abnormality of vi sualized orbits. SINUSES / MASTOIDS: No significant abnormality in the visualized paranasal sinuses or mastoid air cells. CRANIOCERVICAL JUNCTION: No significant abnormality. ADDITIONAL FINDINGS: There are patchy areas of fatty atrophic changes involving the visualized left parotid gland. IMPRESSION: 1. There is no clear CT evidence of acute intracranial process. Signer Name: Keo Bueno MD Signed: 05/14/2021 8:53 PM Workstation Name: [id number] Transcribed By: MR Dictated By: Keo Bueno MD Electronically Authenticated By: Keo Bueno MD Signed Date/Time: 05/14/212052 DD/ 49 TD/TT: [facility] [address] [place] [address] Cat Scan Report Signed Patient: MARINO GRACIA MR#: [id number] : 1965 Acct:[id number] Age/Sex: 56 / F ADM Date: 05/14/21 Loc: ED Attending Dr: Ordering Physician: ASTON GARRETT MD Date of Service: 05/14/21 Procedure(s): CT angio head Accession Number(s): [id number] cc: ASTON GARRETT MD CT angio head INDICATION / CLINICAL INFORMATION: 56 years Female; Left-sided weakness. TECHNIQUE: Thin cut axial images obtained through the head during IV bolus contrast administration. Sagittal, coronal, and 3 plane MIP reconstructions performed by the technologist. NASCET type criteria used evaluate stenoses. Automated exposure control utilized for radiation reduction purposes. COMPARISON: None available. FINDINGS: INTERNAL CAROTID ARTERIES: There is no significant focal stenosis involving distal ICAs by NASCET to criteria. VERTEBROBASILAR SYSTEM: The vertebrobasilar system likewise demonstrate appropriate caliber without significant focal stenosis. The proximal CEREBRAL ARTERIES: Cerebral arteries and adjacent segments appear to demonstrate appropriate caliber without significant stenosis. ANEURYSM: None identified. ADDITIONAL FINDINGS: Remainder of the surrounding soft tissues are grossly normal. IMPRESSION: There is no clear CT evidence of large vessel occlusion amenable to endovascular treatment. Signer Name: Keo Bueno MD Signed: 05/14/2021 9:08 PM Workstation Name: [id number] Transcribed By: MR Dictated By: Keo Bueno MD Electronically Authenticated By: Keo Bueon MD Signed Date/Time: 05/14/212107 DD/ 00 TD/TT: [address] [address] Cat Scan Report Signed Patient: MARINO GRACIA MR#: [id number] 618 : 1965 A cct:[id number] Age/Sex: 56 / F ADM Date: 05/14/21 Loc: ED Attending Dr: Ordering Physician: ASTON GARRETT MD Date of Service: 05/14/21 Procedure(s): CT angio neck Accession Number(s): [id number] cc: ASTON GARRETT MD CT angio neck INDICATION / CLINICAL INFORMATION: 56 years Female; Left-sided weakness. TECHNIQUE: Thin cut axial images obtained through the head during IV bolus contrast administration. Sagittal, coronal, and 3 plane MIP reconstructions performed by the technologist. NASCET type criteria used evaluate stenoses. All CT scans at this location are performed using CT dose reduction for ALARA by means of automated exposure control. COMPARISON: The beam hardening and motion degrades the image quality. However, there is no clear CTA evidence of significant FINDINGS: CAROTID ARTERIES: Stenosis involving cervical carotid arteries by NASCET to criteria. The irregularity projected at the right carotid bifurcation appears to be exacerbated by the degree of motion. VERTEBRAL ARTERIES: The motion also obscures evaluation of the origins of the vertebral arteries. However, there is also no clear CTA evidence of significant focal narrowing of the vertebral arteri es. ARCH: There is no significant focal stenosis involving origins of the arch vessels. ADDITIONAL FINDINGS: There are multilevel degenerative the changes involving cervical spine at. IMPRESSION: There is no clear CT evidence of significant focal stenosis involving cervical carotid or vertebral arteries by NASCET criteria. Signer Name: Keo Bueno MD Signed: 05/14/2021 9:11 PM Workstation Name: [id number] Transcribed By: MR Dictated By: Keo Bueno MD Electronically Authenticated By: Keo Bueno MD Signed Date/Time: 05/14/212110 DD/ 07 TD/TT: - Differential Diagnosis CVA Critical care attestation.: If time is entered above; I have spent that time in minutes in the direct care of this critically ill patient, excluding procedure time. ED Disposition Clinical Impression: Stroke Disposition: ADMITTED INPATIENT Is pt being admited?: Yes Does the pt Need Aspirin: No Condition: Serious Time of Disposition: 22:07 (Hospitalist called (Dr. Howard))
--- NOTE | 2021-05-14 20:52 | Consultation ---
History of Present Illness Consult date: 05/14/21 History of present illness: [facility] Consult Note # Demographics Consult Type: Acute Stroke Level 1 (0-4.5 hrs) Patient Location: Emergency Room First Name: Rodney Last Name: [place] Date of : 1965 Age: 56 Gender: Female Facility: [facility] Time of Initial Page (Eastern Time): 05/14/2021, 20:19 Time of Return Call (Eastern Time): 05/14/2021, 20:19 # HPI Chief Complaint: weakness (focal) History: Per EMS, family reported patient at 17:50 came in after cutting grass with left facial & left sided weakness. BG 159 200/100 HTN codeine allegy alert answers questions Last Known Normal: 1950 Duration: constant minutes Possible Thrombolytic candidate: not on warfarin or NOACs no intracranial hemorrhage history no recent major surgery Quality: weakness # Scores Time of exam and NIHSS ( Time): 05/14/2021, 20:30 Level of Consciousness 1a: [0] = Alert; keenly responsive LOC Questions 1b: [1] = Answers one correctly LOC Commands 1c: [0] = Performs both tasks correctly Best Gaze 2: [0] = Normal Visual 3: [0] = No visual loss Facial Palsy 4: [2] = Partial paralysis Motor Arm Left 5a: [0] = No drift Motor Arm Right 5b: [3] = No effort against gravity Motor Leg Left 6a: [3] = No effort against gravity Motor Leg Right 6b: [0] = No drift Limb Ataxia 7: [0] = Absent Sensory 8: [0] = Normal Best Language 9: [0] = No aphasia Dysarthria 10: [0] = Normal Extinction and Inattention 11: [0] = No abnormality NIHSS Total: 9 Modified Angelo Scale (mRS) pre-stroke: [0] = No Symptoms Modified [place] Scale total: 0 VAN Screening: Negative # Exam SBP: 200 (BP per ED report from EMS call) DBP: 110 Mental Status: awake alert and oriented x 3 follows commands Said month was April Language: no aphasia no dysarthria Hypophonic Cranial Nerves: left facial droop Sensory: decreased sensation left upper extremity decreased sensation left lower extremity # ROS Pulmonary: no shortness of breath Cardiovascular: chest pain # PMH-FH-SH Past Medical History: hypertension Social History: non-smoker Medications: antihypertensive Allergies: Codeine # Data Glucose: 159 per EMS Time Head CT personally read by me ( Time): 05/14/2021, 20:[address]: no bleed preliminarily reviewed by me, please refer to radiology read for official reading # Assessment Impression: Ischemic Stroke (Acute) Rule-out large-vessel right M1 occlusion # Plan Thrombolytic/Intervention: IV thrombolytic and possible IA candidate Thrombolytic Dosing: IV alteplase 0.9 mg/kg, max dose 90 mg; 10% of dose given over 1 minute IVP, remaining 90% given as infusion over 1 hour Possible IA Candidate: CTA pending Time IV Thrombolytic Recommended ( Time): 05/14/2021, 20:44 Labs: CBC comprehensive metabolic panel ESR hemoglobin A1c lipid panel thiamine troponin TSH urine drug screen ua Imaging: (urgency: STAT): CT Angiogram Head and CT Angiogram Neck AND call back with results if abnormal Imaging: (urgency: routine): MRI Brain without contrast Diagnostic Test: echo without bubble study Therapy/Evaluation: NPO until swallow evaluation PT/OT evaluation Medication: aspirin 81 mg daily aspirin 325 mg daily start statin with goal of LDL < 70 DVT Prophylaxis: SCD chemical DVT prophylaxis Thrombolytic Administration Recommendations: I reviewed the risks/benefits/alternatives of IV thrombolytic therapy with the patient. They understand there is potential of life threatening hemorrhage from IV thrombolysis. I stated that I believe benefits outweighs risk. They wish to proceed with IV thrombolytic therapy. I have collected independent history specific to time last normal or last known well. We have collaborated with the ED provider and at this time, we have the most current timeline with the information that is available. BP goal< 180/105 for 24hrs post Thrombolytic administration Use Labetolol 10-20mg IV prn or Nicardipine gtt to maintain BP parameters No antiplatelets or anticoagulants for next 24 hrs unless indicated for emergent IA procedure or other life threatening situation Given the current persistent symptoms & reported lack of exclusion conditions, the risks & benefits of thrombolysis were discussed with the patient. Alteplase is FDA-approved for treating acute ischemic strokes & patients generally do better with treatment than without. Other: telemetry monitoring I have discussed my recommendations with the referring provider Disposition: admit # Logistics Telemedicine: Interactive 2 way audio and visual telecommunication technology was utilized during this visit Medications and Allergies Allergies Allergy/AdvReac Type Severity Reaction Status Date / Time codeine Allergy Rash Verified 04/25/15 18:54 Home Medications Medication Instructions Recorded Confirmed Last Taken Type Acetaminophen [Acetaminophen TAB] 650 mg PO Q4H PRN #10 tablet 02/06/18 Unknown Rx Aspirin 325 mg PO QDAY #30 tablet 02/06/18 Unknown Rx AtorvaSTATin [Lipitor] 40 mg PO QHS #30 tablet 02/06/18 Unknown Rx Lisinopril/Hydrochlorothiazide 1 tab PO QDAY #30 tab 02/06/18 Unknown Rx [Zestoretic 20-25 mg] Hyoscyamine Subl [Levsin Sl 0.125 0.125 mg SL Q6HR PRN #20 tab 10/15/18 Unknown Rx TAB] Ondansetron [Zofran ODT TAB] 8 mg PO Q12HR #14 tab.rapdis 10/15/18 Unknown Rx
--- NOTE | 2021-05-14 20:57 | Cat Scan Report ---
CT head/brain wo con INDICATION / CLINICAL INFORMATION: 56 years Female; Left-sided weakness. TECHNIQUE: Routine CT head without contrast. All CT scans at this location are performed using CT dos e reduction for ALARA by means of automated exposure control. COMPARISON: None. FINDINGS: BRAIN / INTRACRANIAL CONTENTS: The brain parenchyma appears to demonstrate appropriate attenuation fo r age. This mild cerebral atrophy. The ventricular system is correspondingly appropriate in size and configuration. There is no clear CT evidence of acute intracranial hemorrhage or significant mass eff ect. ORBITS: No significant abnormality of visualized orbits. SINUSES / MASTOIDS: No significant abnormality in the visualized paranasal sinuses or mastoid air hussein ls. CRANIOCERVICAL JUNCTION: No significant abnormality. ADDITIONAL FINDINGS: There are patchy areas of fatty atrophic changes involving the visualized left p arotid gland. IMPRESSION: 1. There is no clear CT evidence of acute intracranial process. Signer Name: Keo Bueno MD Signed: 05/14/2021 8:53 PM Workstation Name: [id number]
[2021-05-14 21:05] LABS: Basophils # (Auto) 0.1 K/mm3 (0.0-0.1); Basophils % (Auto) 0.7 % (0.0-1.8); Eosinophils # (Auto) 0.2 K/mm3 (0.0-0.4); Eosinophils % (Auto) 1.6 % (0.0-4.3); Hematocrit 36.7 % (30.3-42.9); Hemoglobin 12.8 gm/dl (10.1-14.3); Lymphocytes # (Auto) 2.7 K/mm3 (1.2-5.4); Lymphocytes % (Auto) 25.1 % (13.4-35.0); Mean Corpuscular HGB Conc 35 % (30-34); Mean Corpuscular Volume 83 fl (79-97); Monocytes # (Auto) 0.8 K/mm3 (0.0-0.8); Monocytes % (Auto) 7.3 % (0.0-7.3); Platelet Count 278 K/mm3 (140-440); Red Blood Count 4.42 M/mm3 (3.65-5.03); Red Cell Distribution Width 13.2 % (13.2-15.2)
--- NOTE | 2021-05-14 21:12 | Cat Scan Report ---
CT angio head INDICATION / CLINICAL INFORMATION: 56 years Female; Left-sided weakness. TECHNIQUE: Thin cut axial images obtained through the head during IV bolus contrast administration. S agittal, coronal, and 3 plane MIP reconstructions performed by the technologist. NASCET type criteria used evaluate stenoses. Automated exposure control utilized for radiation reduction purposes. COMPARISON: None available. FINDINGS: INTERNAL CAROTID ARTERIES: There is no significant focal stenosis involving distal ICAs by NASCET to criteria. VERTEBROBASILAR SYSTEM: The vertebrobasilar system likewise demonstrate appropriate caliber without s ignificant focal stenosis. The proximal CEREBRAL ARTERIES: Cerebral arteries and adjacent segments appear to demonstrate appropriate caliber without significant stenosis. ANEURYSM: None identified. ADDITIONAL FINDINGS: Remainder of the surrounding soft tissues are grossly normal. IMPRESSION: There is no clear CT evidence of large vessel occlusion amenable to endovascular treatment. Signer Name: Keo Bueno MD Signed: 05/14/2021 9:08 PM Workstation Name: [id number]
[2021-05-14 21:15] LABS: INR 0.91 (0.87-1.13)
[2021-05-14 21:16] LABS: BUN/Creatinine Ratio 16; Blood Urea Nitrogen 13 mg/dL (7-17); Calcium 9.1 mg/dL (8.4-10.2); Hemolysis Index 10; Partial Thromboplastin Time 23.8 Sec. (24.2-36.6); Thrombin Time 17.7 Sec. (15.1-19.6)
--- NOTE | 2021-05-14 21:16 | Cat Scan Report ---
CT angio neck INDICATION / CLINICAL INFORMATION: 56 years Female; Left-sided weakness. TECHNIQUE: Thin cut axial images obtained through the head during IV bolus contrast administration. S agittal, coronal, and 3 plane MIP reconstructions performed by the technologist. NASCET type criteria used evaluate stenoses. All CT scans at this location are performed using CT dose reduction for ALAR A by means of automated exposure control. COMPARISON: The beam hardening and motion degrades the image quality. However, there is no clear CTA evidence of significant FINDINGS: CAROTID ARTERIES: Stenosis involving cervical carotid arteries by NASCET to criteria. The irregularit y projected at the right carotid bifurcation appears to be exacerbated by the degree of motion. VERTEBRAL ARTERIES: The motion also obscures evaluation of the origins of the vertebral arteries. How ever, there is also no clear CTA evidence of significant focal narrowing of the vertebral arteries. ARCH: There is no significant focal stenosis involving origins of the arch vessels. ADDITIONAL FINDINGS: There are multilevel degenerative the changes involving cervical spine at. IMPRESSION: There is no clear CT evidence of significant focal stenosis involving cervical carotid or vertebral a rteries by NASCET criteria. Signer Name: Keo Bueno MD Signed: 05/14/2021 9:11 PM Workstation Name: [id number]
[2021-05-14] MEDS ORDERED: HYDROcodone/ACETAMINOPHEN 5-325 MG TAB PO ONE (23:30)
[2021-05-15] MEDS ORDERED: ALBUTEROL 2.5 MG/3 ML NEBU IH PRN (00:10)
[2021-05-15] MEDS ORDERED: HYOSCYAMINE SUBL 0.125 MG TAB SL PRN (00:15)
[2021-05-15] MEDS ORDERED: SODIUM CHLORIDE 0.9% 1000 ML 1,000 ML IV SCH (00:15)
--- NOTE | 2021-05-15 00:21 | History and Physical Report ---
History of Present Illness Date of examination: 05/15/21 Date of admission: 05/15/21 Chief complaint: Left-sided weakness History of present illness: 56-year-old female with history of hypertension and CVA was brought to the hospital because of left-sided weakness. Last known well time was approximately 19:50. Patient complains of weakness of left arm and left leg. Patient also complains of decreased sensation light touch of the left upper and left lower extremity. Patient is soft-spoken but answers questions appropriately. Initial CT scan shows no acute intracranial abnormality. Subsequently Case discussed with on-call neurologist and patient is status post TPA. We are going to admit the patient to the ICU. Will consult neurology for evaluation Past History Past Medical History: hypertension, stroke Past Surgical History: Other (R SHOULDER, L EAR, Hysterectomy) Social history: other (Never a smoker) Family history: no significant family history Medications and Allergies Allergies Allergy/AdvReac Type Severity Reaction Status Date / Time codeine Allergy Rash Verified 04/25/15 18:54 Home Medications Medication Instructions Recorded Confirmed Last Taken Type Acetaminophen [Acetaminophen TAB] 650 mg PO Q4H PRN #10 tablet 02/06/18 Unknown Rx Aspirin 325 mg PO QDAY #30 tablet 02/06/18 Unknown Rx AtorvaSTATin [Lipitor] 40 mg PO QHS #30 tablet 02/06/18 Unknown Rx Lisinopril/Hydrochlorothiazide 1 tab PO QDAY #30 tab 02/06/18 Unknown Rx [Zestoretic 20-25 mg] Hyoscyamine Subl [Levsin Sl 0.125 0.125 mg SL Q6HR PRN #20 tab 10/15/18 Unknown Rx TAB] Ondansetron [Zofran ODT TAB] 8 mg PO Q12HR #14 tab.rapdis 10/15/18 Unknown Rx Active Meds: Active Medications Acetaminophen (Acetaminophen 325 Mg Tab) 650 mg PO Q4H PRN PRN Reason: Pain MILD(1-3)/Fever >100.5/BOOKER Albuterol (Albuterol 2.5 Mg/3 Ml Nebu) 2.5 mg IH Q3HRT PRN PRN Reason: Shortness Of Breath Albuterol/Ipratropium (Ipratropium/Albuterol Sulfate 3 Ml Ampul.Neb) 1 ampul IH Q6HRT OUSMANE Atorvastatin Calcium (Atorvastatin 40 Mg Tab) 80 mg PO QHS OUSMANE Famotidine (Famotidine 20 Mg/2 Ml Inj) 20 mg IV BID OUSAMNE Hydromorphone HCl (Hydromorphone 1 Mg/1 Ml Inj) 0.5 mg IV Q3H PRN PRN Reason: Pain , Severe (7-10) Hyoscyamine (Hyoscyamine Subl 0.125 Mg Tab) 0.125 mg SL Q6HR PRN PRN Reason: abdominal cramps and spasms Sodium Chloride (Nacl 0.9% 1000 Ml) 1,000 mls @ 100 mls/hr IV DIRECT OUSMANE Labetalol HCl (Labetalol 20 Mg/4 Ml Inj) 10 mg IV Q5MIN PRN PRN Reason: to maintain SBP < 180 Miscellaneous Medication (Lisinopril/Hydrochlorothiazide [Zestoretic 20-25 Mg]) 1 tab PO QDAY [facility] Morphine Sulfate (Morphine 2 Mg/1 Ml Inj) 2 mg IV Q4H PRN PRN Reason: Pain, Moderate (4-6) Ondansetron HCl (Ondansetron 4 Mg/2 Ml Inj) 4 mg IV Q8H PRN PRN Reason: Nausea And Vomiting Sodium Chloride (Sodium Chloride 0.9% 10 Ml Flush Syringe) 10 ml IV BID OUSMANE Sodium Chloride (Sodium Chloride 0.9% 10 Ml Flush Syringe) 10 ml IV PRN PRN PRN Reason: LINE FLUSH Sodium Chloride (Sodium Chloride 0.9% 10 Ml Flush Syringe) 10 ml INJ PRN PRN PRN Reason: LINE FLUSH Review of Systems All systems: negative Constitutional: weakness Neurological: weakness, parathesias, numbness, other (Weakness of the left leg and left arm) Exam - Constitutional Vitals: Temp Pulse Resp BP Pulse Ox 98.7 F 77 16 178/86 99 05/14/21 21:08 05/14/21 23:20 05/14/21 23:20 05/14/21 23:20 05/14/21 23:20 General appearance: Present: no acute distress, well-nourished - EENT Eyes: Present: PERRL ENT: hearing intact, clear oral mucosa - Neck Neck: Present: supple, normal ROM - Respiratory Respiratory effort: normal Respiratory: bilateral: diminished - Cardiovascular Heart Sounds: Present: S1 & S2. Absent: rub, click - Extremities Extremities: pulses symmetrical, No edema Peripheral Pulses: within normal limits - Abdominal General gastrointestinal: Present: soft, non-tender, non-distended, normal bowel sounds Female genitourinary: Present: normal - Integumentary Integumentary: Present: clear, warm, dry - Musculoskeletal Musculoskeletal: gait normal, strength equal bilaterally - Psychiatric Psychiatric: appropriate mood/affect, intact judgment & insight - Neurologic Neurologic: CNII-XII intact, moves all extremities, other (Weakness of the left arm and left leg) Results - Labs CBC & Chem 7: 05/14/21 20:55 05/14/21 20:55 Labs: Laboratory Last Values WBC 10.6 K/mm3 (4.5-11.0) 05/14/21 20:55 RBC 4.42 M/mm3 (3.65-5.03) 05/14/21 20:55 Hgb 12.8 gm/dl (10.1-14.3) 05/14/21 20:55 Hct 36.7 % (30.3-42.9) 05/14/21 20:55 MCV 83 fl (79-97) 05/14/21 20:55 MCH 29 pg (28-32) 05/14/21 20:55 MCHC 35 % (30-34) H 05/14/21 20:55 RDW 13.2 % (13.2-15.2) 05/14/21 20:55 Plt Count 278 K/mm3 (140-440) 05/14/21 20:55 Lymph % (Auto) 25.1 % (13.4-35.0) 05/14/21 20:55 [place] % (Auto) 7.3 % (0.0-7.3) 05/14/21 20:55 Eos % (Auto) 1.6 % (0.0-4.3) 05/14/21 20:55 Baso % (Auto) 0.7 % (0.0-1.8) 05/14/21 20:55 Lymph # (Auto) 2.7 K/mm3 (1.2-5.4) 05/14/21 20:55 [place] # (Auto) 0.8 K/mm3 (0.0-0.8) 05/14/21 20:55 Eos # (Auto) 0.2 K/mm3 (0.0-0.4) 05/14/21 20:55 Baso # (Auto) 0.1 K/mm3 (0.0-0.1) 05/14/21 20:55 Seg Neutrophils % 65.3 % (40.0-70.0) 05/14/21 20:55 Seg Neutrophils # 6.9 K/mm3 (1.8-7.7) 05/14/21 20:55 PT 13.2 Sec. (12.2-14.9) 05/14/21 20:55 INR 0.91 (0.87-1.13) 05/14/21 20:55 APTT 23.8 Sec. (24.2-36.6) L 05/14/21 20:55 Thrombin Time 17.7 Sec. (15.1-19.6) 05/14/21 20:55 Sodium 133 mmol/L (137-145) L 05/14/21 20:55 Potassium 3.7 mmol/L (3.6-5.0) 05/14/21 20:55 Chloride 98.5 mmol/L (98-107) 05/14/21 20:55 Carbon Dioxide 24 mmol/L (22-30) 05/14/21 20:55 Anion Gap 14 mmol/L 05/14/21 20:55 BUN 13 mg/dL (7-17) 05/14/21 20:55 Creatinine 0.8 mg/dL (0.6-1.2) 05/14/21 20:55 Estimated GFR > 60 ml/min 05/14/21 20:55 BUN/Creatinine Ratio 16 % 05/14/21 20:55 Glucose 159 mg/dL (65-100) H 05/14/21 20:55 Calcium 9.1 mg/dL (8.4-10.2) 05/14/21 20:55 - Imaging and Cardiology CT Scan - head: report reviewed Assessment and Plan VTE prophylaxis?: Mechanical Plan of care discussed with patient/family: Yes - Patient Problems (1) Ischemic stroke Current Visit: Yes Status: Acute Plan to address problem: Admit the patient to the ICU. N.p.o. patient is status post TPA. Lipitor 80 mg p.o. daily. PT OT speech evaluation. Neurology evaluation. MRI of the brain with and without contrast. MRI of the brain and neck with and without contrast. Echocardiogram. Patient is complaining of headaches were going to repeat the CT scan of the head without contrast (2) Essential hypertension Current Visit: No Status: Acute Plan to address problem: Lisinopril/hydrochlorothiazide 20-25 mg p.o. daily. Labetalol 10 mg IV every 6 hours as needed. We will monitor the blood pressure closely (3) TIA (transient ischemic attack) Current Visit: No Status: Acute Plan to address problem: Lipitor 80 mg p.o. daily. We continue the home medication. PT OT speech evaluation (4) DVT prophylaxis Current Visit: Yes Status: Acute Plan to address problem: SCD for DVT prophylaxis. Pepcid 20 mg IV every 12 hours for GI prophylaxis. Patient is a full code
[2021-05-15] MEDS ORDERED: HYDROmorphone 1 MG/1 ML INJ ONE (00:38)
[2021-05-15] MEDS: HYDROmorphone 1 MG/1 ML INJ IV PRN (00:40)
--- NOTE | 2021-05-15 01:27 | Cat Scan Report ---
CT head/brain wo con INDICATION: Headache, Status-post TPA. TECHNIQUE: All CT scans at this location are performed using CT dose reduction for ALARA by means of automated e xposure control. COMPARISON: Head CT on 05/14/2021 FINDINGS: There is no acute hemorrhage, brain edema, or hydrocephalus. There is no adverse change from the prio r exam. IMPRESSION: 1. No acute findings or adverse change from the prior exam. Signer Name: Hugh Wolf MD Signed: 05/15/2021 1:22 AM Workstation Name: [id number]
[2021-05-15] MEDS: ONDANSETRON 4 MG/2 ML INJ IV PRN (01:35)
[2021-05-15] MEDS ORDERED: IPRATROPIUM/ALBUTEROL SULFATE 3 ML AMPUL.NEB IH SCH (02:00)
[2021-05-15] MEDS ORDERED: FAMOTIDINE 20 MG/2 ML INJ IV SCH (10:00)
[2021-05-15] MEDS ORDERED: hydroCHLOROthiazide 25 MG TAB PO SCH (10:00)
[2021-05-15] MEDS ORDERED: LISINOPRIL 20 MG TAB PO SCH (10:00)
--- NOTE | 2021-05-15 10:46 | Consultation ---
History of Present Illness - Reason for Consult Consult date: 05/15/21 S/p TPA for stroke - History of Present Illness 56 y/o obese female admitted with stroke like symptoms s/p TPA Past History Past Medical History: hypertension, stroke Past Surgical History: Other (R SHOULDER, L EAR, Hysterectomy) Social history: other (Never a smoker) Family history: no significant family history Medications and Allergies Allergies Allergy/AdvReac Type Severity Reaction Status Date / Time codeine Allergy Rash Verified 04/25/15 18:54 Home Medications Medication Instructions Recorded Confirmed Last Taken Type Acetaminophen [Acetaminophen TAB] 650 mg PO Q4H PRN #10 tablet 02/06/18 05/15/21 Unknown Rx Aspirin 325 mg PO QDAY #30 tablet 02/06/18 05/15/21 Unknown Rx AtorvaSTATin [Lipitor] 40 mg PO QHS #30 tablet 02/06/18 05/15/21 05/14/21 10:00 Rx Lisinopril/Hydrochlorothiazide 1 tab PO QDAY #30 tab 02/06/18 05/15/21 05/14/21 10:00 Rx [Zestoretic 20-25 mg] Metoclopramide 1 tab Q6HR PRN 05/15/21 05/15/21 05/13/21 History amLODIPine [Norvasc] 5 mg PO DAILY 05/15/21 05/15/21 05/14/21 History 0800 amLODIPine [Norvasc] 10 mg PO DAILY 05/15/21 05/15/21 05/14/21 History 0800 Active Meds: Active Medications Acetaminophen (Acetaminophen 325 Mg Tab) 650 mg PO Q4H PRN PRN Reason: Pain MILD(1-3)/Fever >100.5/BOOKER Albuterol (Albuterol 2.5 Mg/3 Ml Nebu) 2.5 mg IH Q3HRT PRN PRN Reason: Shortness Of Breath Atorvastatin Calcium (Atorvastatin 40 Mg Tab) 80 mg PO QHS OUSMANE Famotidine (Famotidine 20 Mg Tab) 20 mg PO QDAY OUSMANE Hydrochlorothiazide (Hydrochlorothiazide 25 Mg Tab) 25 mg PO QDAY OUSMANE Hydromorphone HCl (Hydromorphone 1 Mg/1 Ml Inj) 0.5 mg IV Q3H PRN PRN Reason: Pain , Severe (7-10) Last Admin: 05/15/21 00:40 Dose: 0.5 mg Hyoscyamine (Hyoscyamine Subl 0.125 Mg Tab) 0.125 mg SL Q6H PRN PRN Reason: abdominal cramps and spasms Sodium Chloride (Nacl 0.9% 1000 Ml) 1,000 mls @ 100 mls/hr IV DIRECT OUSMANE Labetalol HCl (Labetalol 20 Mg/4 Ml Inj) 10 mg IV Q5MIN PRN PRN Reason: to maintain SBP < 180 Last Admin: 05/15/21 00:54 Dose: 10 mg Lisinopril (Lisinopril 20 Mg Tab) 20 mg PO QDAY OUSMANE Morphine Sulfate (Morphine 2 Mg/1 Ml Inj) 2 mg IV Q4H PRN PRN Reason: Pain, Moderate (4-6) Ondansetron HCl (Ondansetron 4 Mg/2 Ml Inj) 4 mg IV Q8H PRN PRN Reason: Nausea And Vomiting Last Admin: 05/15/21 01:35 Dose: 4 mg Sodium Chloride (Sodium Chloride 0.9% 10 Ml Flush Syringe) 10 ml IV BID OUSMANE Sodium Chloride (Sodium Chloride 0.9% 10 Ml Flush Syringe) 10 ml IV PRN PRN PRN Reason: LINE FLUSH Exam - Constitutional Vitals: Temp Pulse Resp BP Pulse Ox 97.6 F 57 L 11 L 145/77 100 05/15/21 07:00 05/15/21 09:30 05/15/21 09:30 05/15/21 09:30 05/15/21 09:30 General appearance: Present: no acute distress, well-nourished, obese - EENT Eyes: Present: PERRL, EOM intact ENT: hearing intact - Neck Neck: Present: supple, normal ROM - Respiratory Respiratory effort: normal Respiratory: bilateral: CTA Results - Labs CBC & Chem 7: 05/16/21 04:32 05/16/21 04:32 Labs: Abnormal lab results 05/14/21 05/14/21 05/14/21 Range/Units 20:55 20:55 20:55 MCHC 35 H (30-34) % APTT 23.8 L (24.2-36.6) Sec. Sodium 133 L (137-145) mmol/L Glucose 159 H (65-100) mg/dL - Imaging and Cardiology CT Scan - head: report reviewed Assessment and Plan 56 y/o female with stroke, s/p TPA 1. Q1 hour neuro checks 2. Hold any antiplatelet therapy until 24 hour post TPA so likely start tomorrow 3. follow up repeat Head CT 4. Blood pressure control 5. Follow up neurology recs. CCT 31minutes.
[2021-05-15] MEDS: FAMOTIDINE 20 MG TAB PO SCH (11:00)
--- NOTE | 2021-05-15 11:54 | Electrocardiograph Report ---
[facility] Test Date: 2021-05-14 Test Time: 21:56:54 Pat Name: MARINO GRACIA Department: Room: A260 1 Gender: F Warp Tester: LISA : 1965 Requested By: ASTON GARRETT Order Number: [id number] Reading MD: Ravi Webb Measurements Intervals [place] Rate: 79 P: 46 AR: 168 QRS: 39 QRSD: 79 T: 29 QT: 404 QTc: 463 Interpretive Statements Sinus rhythm No previous ECG available for comparison Electronically Signed On 05-15-2021 11:54:01 EDT by Ravi Webb
[2021-05-15] MEDS: ACETAMINOPHEN 325 MG TAB PO PRN ×2 (12:58→22:02)
--- NOTE | 2021-05-15 14:33 | Consultation ---
History of Present Illness Consult date: 05/15/21 Reason for Consult: CVA History of present illness: Neurology Consult for evaluation status post TPA . The patient reports improvement since the last 24 hours, reports developing ? palpitation, the patient fell on the floor. Reports Headaches, per the History BOOKER . The patient interpretor reports weakness. There is no dizziness, there was weakness mainly left side weakness . Past History Past Medical History: hypertension, stroke Past Surgical History: Other (R SHOULDER, L EAR, Hysterectomy) Social history: other (Never a smoker) Family history: no significant family history Medications and Allergies Allergies Allergy/AdvReac Type Severity Reaction Status Date / Time codeine Allergy Rash Verified 04/25/15 18:54 Home Medications Medication Instructions Recorded Confirmed Last Taken Type Acetaminophen [Acetaminophen TAB] 650 mg PO Q4H PRN #10 tablet 02/06/18 05/15/21 Unknown Rx Aspirin 325 mg PO QDAY #30 tablet 02/06/18 05/15/21 Unknown Rx AtorvaSTATin [Lipitor] 40 mg PO QHS #30 tablet 02/06/18 05/15/21 05/14/21 10:00 Rx Lisinopril/Hydrochlorothiazide 1 tab PO QDAY #30 tab 02/06/18 05/15/21 05/14/21 10:00 Rx [Zestoretic 20-25 mg] Metoclopramide 1 tab Q6HR PRN 05/15/21 05/15/21 05/13/21 History amLODIPine [Norvasc] 5 mg PO DAILY 05/15/21 05/15/21 05/14/21 History 0800 amLODIPine [Norvasc] 10 mg PO DAILY 05/15/21 05/15/21 05/14/21 History 0800 Active Meds: Active Medications Acetaminophen (Acetaminophen 325 Mg Tab) 650 mg PO Q4H PRN PRN Reason: Pain MILD(1-3)/Fever >100.5/BOOKER Last Admin: 05/15/21 12:58 Dose: 650 mg Albuterol (Albuterol 2.5 Mg/3 Ml Nebu) 2.5 mg IH Q3HRT PRN PRN Reason: Shortness Of Breath Atorvastatin Calcium (Atorvastatin 40 Mg Tab) 80 mg PO QHS OUSMANE Famotidine (Famotidine 20 Mg Tab) 20 mg PO QDAY OUSMANE Last Admin: 05/15/21 11:00 Dose: 20 mg Hydrochlorothiazide (Hydrochlorothiazide 25 Mg Tab) 25 mg PO QDAY [facility] Last Admin: 05/15/21 11:01 Dose: 25 mg Hydromorphone HCl (Hydromorphone 1 Mg/1 Ml Inj) 0.5 mg IV Q3H PRN PRN Reason: Pain , Severe (7-10) Last Admin: 05/15/21 00:40 Dose: 0.5 mg Hyoscyamine (Hyoscyamine Subl 0.125 Mg Tab) 0.125 mg SL Q6H PRN PRN Reason: abdominal cramps and spasms Sodium Chloride (Nacl 0.9% 1000 Ml) 1,000 mls @ 100 mls/hr IV DIRECT [facility] Labetalol HCl (Labetalol 20 Mg/4 Ml Inj) 10 mg IV Q5MIN PRN PRN Reason: to maintain SBP < 180 Last Admin: 05/15/21 00:54 Dose: 10 mg Lisinopril (Lisinopril 20 Mg Tab) 20 mg PO QDAY [facility] Last Admin: 05/15/21 11:00 Dose: 20 mg Morphine Sulfate (Morphine 2 Mg/1 Ml Inj) 2 mg IV Q4H PRN PRN Reason: Pain, Moderate (4-6) Ondansetron HCl (Ondansetron 4 Mg/2 Ml Inj) 4 mg IV Q8H PRN PRN Reason: Nausea And Vomiting Last Admin: 05/15/21 01:35 Dose: 4 mg Sodium Chloride (Sodium Chloride 0.9% 10 Ml Flush Syringe) 10 ml IV BID [facility] Last Admin: 05/15/21 11:01 Dose: 10 ml Sodium Chloride (Sodium Chloride 0.9% 10 Ml Flush Syringe) 10 ml IV PRN PRN PRN Reason: LINE FLUSH Physical Examination - Vital Signs Vital Signs: Vital Signs Pulse Ox 100 05/14/21 21:01 - Physical Exam Narrative exam: The patient is alert no speech issue, there is weakness on the left UE , against gravity 1/5 , LE same . Hand Internet Researcher on the left is ? very weak, mild facial weakness. Results - Laboratory Findings CBC and BMP: 05/14/21 20:55 05/14/21 20:55 Abnormal Lab Findings: Abnormal Labs 05/14/21 05/14/21 05/14/21 20:55 20:55 20:55 MCHC 35 H APTT 23.8 L Sodium 133 L Glucose 159 H Assessment and Plan 1. CVA - Right MCA ( ? embolic - needs further evaluation - MRI Brain ) . 2. Needs Inpatient Rehabilitation . 3. Reviewed All Home Medications . 4. Awaits MRI Brain . 5. Continue Inpatient Rehabiliation for now . 6. Call Back with Questions . Dr. Duy BENNETT
[2021-05-15 15:32] LABS: Chol/HDL Ratio 4.82 %
--- NOTE | 2021-05-15 15:52 | Progress Note ---
Assessment and Plan Assessment and plan: This is a 56-year-old female with HTN, TIA, hyperlipidemia admitted with a right-sided CVA s/p TPA Neuro: r/o Right MCA -Neurology consulted, appreciate recommendations -MRI brain pending -S/p TPA on 05/14 2100 -Initial CT head with no acute findings -Repeat CT head with no acute finding -CTA head and neck with no large vessel occlusion or significant stenosis noted -Permissive hypertension for the 24 to 48 hours -LDL profile noted -Hemoglobin A1c pending -Lipitor nightly -CCM consulted, appreciate recommendation -ST/PT/OT consulted, patient recommendations -Passed bedside swallow and speech evaluation -PT recommends wheelchair and 3 and 1 bedside commode and acute rehab -Neurochecks per protocol Cardiac: h/o HTN, hyperlipidemia -Blood pressure monitoring per protocol -Hold home lisinopril and hydrochlorothiazide -Echocardiogram with LVEF of 60 to 65% no PFO -Loop recorder in stiu -will contact company for MRI compatibility and interrogation Respiratory: NAD -Pulmonary hygiene -Supplemental oxygen as needed -SPO2 monitoring GI: Obesity -Cardiac diet -24 hours +30 -PPI -NTR consulted for tube feedings -BR: Colace : Hyponatremia -Trend BMP -Monitor neuro status ID: NAD -Monitor WBC and temperature curve Endo: NAD -Avoid hypoglycemia Heme: NAD -Trend CBC -Transfuse hemoglobin less than 7 -Monitor for signs of bleeding -SCDs to BLE while in bed -Start antiplatelets and prophylactic coagulation 24 hours post TPA The high probability of a clinically significant, sudden or life threatening deterioration of the [neuro] system(s) required my full and direct attention, intervention and personal management. The aggregate critical care time was [60] minutes. This time is in addition to time spent performing reported procedures but includes the following: [x] Data Review and interpretation [x] Patient assessment and monitoring of vital signs [x] Documentation [x] Medication orders and management Disposition Plan: icu Total Time Spent with Patient (Minutes): 60 History Interval history: This is a 56-year-old female with hypertension, TIA (most recent September 2017), s/p cholecystectomy, hyperlipidemia who presented to the emergency department with left-sided weakness via EMS and last known well was 1950 on 05/14. Work-up in the emergency department included a CTA head and neck and CT head. Telemetry neurology was consulted and deemed the patient candidate for TPA. Patient was also hypertensive on arrival 200/100. Initial NIHSS was 9. Patient was admitted to the hospitalist service with consults to neurology and CCM to the ICU for 24 hours observation post TPA. Hospital course to date: 05/15: Patient passed swallow evaluation at bedside, speech therapy and physical therapy completed evaluations. Awaiting CT head at 2100. MRI brain on hold. RN to contact loop recorder supplier ([employer]) for interpretation and to see if MRI compatible. Hospitalist Physical - Constitutional Vitals: Temp Pulse Resp BP Pulse Ox 98 F 63 13 130/66 96 05/15/21 12:00 05/15/21 15:40 05/15/21 15:40 05/15/21 15:40 05/15/21 15:40 General appearance: Present: no acute distress, well-nourished - EENT Eyes: Present: PERRL, EOM intact ENT: hearing intact, clear oral mucosa, dentition normal - Neck Neck: Present: normal ROM - Respiratory Respiratory effort: normal Respiratory: bilateral: CTA - Cardiovascular Rhythm: regular Heart Sounds: Present: S1 & S2. Absent: systolic murmur, diastolic murmur - Extremities Extremities: no ischemia, pulses intact, pulses symmetrical, No edema, normal temperature, normal color, Full ROM Peripheral Pulses: within normal limits - Abdominal General gastrointestinal: soft, non-tender, non-distended, normal bowel sounds - Integumentary Integumentary: Present: warm, dry - Psychiatric Psychiatric: cooperative - Neurologic Neurologic: CNII-XII intact, focal deficits (Left sided facial droop, left sided UE and LE drift (0/4), decreased sensation to left UE and LE) Results - Labs CBC & Chem 7: 05/14/21 20:55 05/14/21 20:55 Labs: Laboratory Last Values WBC 10.6 K/mm3 (4.5-11.0) 05/14/21 20:55 RBC 4.42 M/mm3 (3.65-5.03) 05/14/21 20:55 Hgb 12.8 gm/dl (10.1-14.3) 05/14/21 20:55 Hct 36.7 % (30.3-42.9) 05/14/21 20:55 MCV 83 fl (79-97) 05/14/21 20:55 MCH 29 pg (28-32) 05/14/21 20:55 MCHC 35 % (30-34) H 05/14/21 20:55 RDW 13.2 % (13.2-15.2) 05/14/21 20:55 Plt Count 278 K/mm3 (140-440) 05/14/21 20:55 Lymph % (Auto) 25.1 % (13.4-35.0) 05/14/21 20:55 [place] % (Auto) 7.3 % (0.0-7.3) 05/14/21 20:55 Eos % (Auto) 1.6 % (0.0-4.3) 05/14/21 20: Baso % (Auto) 0.7 % (0.0-1.8) 05/14/21 20: Lymph # (Auto) 2.7 K/mm3 (1.2-5.4) 05/14/21 20: [place] # (Auto) 0.8 K/mm3 (0.0-0.8) 05/14/21 20: Eos # (Auto) 0.2 K/mm3 (0.0-0.4) 05/14/21 20: Baso # (Auto) 0.1 K/mm3 (0.0-0.1) 05/14/21 20: Seg Neutrophils % 65.3 % (40.0-70.0) 05/14/21 20: Seg Neutrophils # 6.9 K/mm3 (1.8-7.7) 05/14/21 20:55 PT 13.2 Sec. (12.2-14.9) 05/14/21 20:55 INR 0.91 (0.87-1.13) 05/14/21 20:55 APTT 23.8 Sec. (24.2-36.6) L 05/14/21 20:55 Thrombin Time 17.7 Sec. (15.1-19.6) 05/14/21 20:55 Sodium 133 mmol/L (137-145) L 05/14/21 20:55 Potassium 3.7 mmol/L (3.6-5.0) 05/14/21 20: Chloride 98.5 mmol/L (98-107) 05/14/21 20:55 Carbon Dioxide 24 mmol/L (22-30) 05/14/21 20:55 Anion Gap 14 mmol/L 05/14/21 20:55 BUN 13 mg/dL (7-17) 05/14/21 20:55 Creatinine 0.8 mg/dL (0.6-1.2) 05/14/21 20:55 Estimated GFR > 60 ml/min 05/14/21 20:55 BUN/Creatinine Ratio 16 % 05/14/21 20:55 Glucose 159 mg/dL (65-100) H 05/14/21 20:55 Calcium 9.1 mg/dL (8.4-10.2) 05/14/21 20:55 Triglycerides 333 mg/dL (2-149) H 05/15/21 14:37 Cholesterol 188 mg/dL (50-199) 05/15/21 14:37 LDL Cholesterol Direct 111 mg/dL (50-130) 05/15/21 14:37 HDL Cholesterol 39 mg/dL (40-59) L 05/15/21 14:37 Cholesterol/HDL Ratio 4.82 % 05/15/21 14:37 Wilkinson/IV: Voiding Method External Female Catheter Active Medications - Current Medications Current Medications: Generic Name Dose Route Start Last Admin Trade Name Freq PRN Reason Stop Dose Admin Acetaminophen 650 mg 05/15/21 00:10 05/15/21 12:58 Acetaminophen 325 Mg Tab PO 650 mg Q4H PRN Administration Pain MILD(1-3)/Fever >100.5/BOOKER Albuterol 2.5 mg 05/15/21 00:10 Albuterol 2.5 Mg/3 Ml Nebu IH Q3HRT PRN Shortness Of Breath Atorvastatin Calcium 80 mg 05/15/21 22:00 Atorvastatin 40 Mg Tab PO QHS OUSMANE Docusate Sodium 100 mg 05/15/21 22:00 Docusate Sodium 100 Mg Cap PO BID OUSMANE Famotidine 20 mg 05/15/21 11:00 05/15/21 11:00 Famotidine 20 Mg Tab PO 20 mg QDAY OUSMANE Administration Hydromorphone HCl 0.5 mg 05/15/21 00:10 05/15/21 00:40 Hydromorphone 1 Mg/1 Ml Inj IV 0.5 mg Q3H PRN Administration Pain , Severe (7-10) Hyoscyamine 0.125 mg 05/15/21 00:15 Hyoscyamine Subl 0.125 Mg Tab SL Q6H PRN abdominal cramps and spasms Sodium Chloride 1,000 mls @ 100 mls/hr 05/15/21 00:15 Nacl 0.9% 1000 Ml IV DIRECT OUSMANE Labetalol HCl 10 mg 05/15/21 00:10 05/15/21 00:54 Labetalol 20 Mg/4 Ml Inj IV 10 mg Q5MIN PRN Administration to maintain SBP < 180 Morphine Sulfate 2 mg 05/15/21 00:10 Morphine 2 Mg/1 Ml Inj IV Q4H PRN Pain, Moderate (4-6) Ondansetron HCl 4 mg 05/15/21 00:10 05/15/21 01:35 Ondansetron 4 Mg/2 Ml Inj IV 4 mg Q8H PRN Administration Nausea And Vomiting Sodium Chloride 10 ml 05/15/21 10:00 05/15/21 11:01 Sodium Chloride 0.9% 10 Ml Flush Syringe IV 10 ml BID OUSMANE Administration Sodium Chloride 10 ml 05/15/21 00:10 Sodium Chloride 0.9% 10 Ml Flush Syringe IV PRN PRN LINE FLUSH
[2021-05-15] MEDS ORDERED: DEXTROSE 50% IN WATER (25GM) 50 ML SYRINGE IV PRN (16:14)
[2021-05-15] MEDS: INSULIN LISPRO 100 UNIT/ML SUB-Q SCH ×2 (20:18→22:06)
--- NOTE | 2021-05-15 21:44 | Cat Scan Report ---
NONENHANCED CT SCAN OF THE HEAD: INDICATION / CLINICAL INFORMATION: 56 years Female; 24 hr post tpa. 05/15 2100. TECHNIQUE: Routine CT head without contrast. All CT scans at this location are performed using CT dos e reduction for ALARA by means of automated exposure control. COMPARISON: CT scan of the head from 05/15/2021 12:46 AM FINDINGS: BRAIN / INTRACRANIAL CONTENTS: No intracerebral hemorrhage or extracerebral hemorrhage No CT findings to suggest acute territorial infarction; no acute/subacute lacunae No acute hemorrhage , mass effect, midline shift, hydrocephalus, or acute, large territorial infarct. No chronic infarct or focal atrophy. Normal brain volume and ventricular/sulcal size for age. No significant white matte r abnormality. CRANIOCERVICAL JUNCTION: No significant abnormality. ORBITS: No significant abnormality of visualized orbits. SINUSES / MASTOIDS: No significant abnormality of the visualized paranasal sinuses or mastoid air hussein ls. ADDITIONAL FINDINGS: None. IMPRESSION: No acute focal parenchymal lesion in the brain: No intracerebral hemorrhage Signer Name: Kye Mccoy MD Signed: 05/15/2021 9:40 PM Workstation Name: [email or web address]
[2021-05-15] MEDS: DOCUSATE SODIUM 100 MG CAP PO SCH (22:05)
[2021-05-16 04:49] LABS: Basophils # (Auto) 0.1 K/mm3 (0.0-0.1); Basophils % (Auto) 0.7 % (0.0-1.8); Eosinophils # (Auto) 0.4 K/mm3 (0.0-0.4); Eosinophils % (Auto) 4.5 % (0.0-4.3); Hematocrit 39.7 % (30.3-42.9); Hemoglobin 13.2 gm/dl (10.1-14.3); Lymphocytes # (Auto) 2.6 K/mm3 (1.2-5.4); Lymphocytes % (Auto) 31.1 % (13.4-35.0); Mean Corpuscular HGB Conc 33 % (30-34); Mean Corpuscular Volume 85 fl (79-97); Monocytes # (Auto) 0.7 K/mm3 (0.0-0.8); Monocytes % (Auto) 8.5 % (0.0-7.3); Platelet Count 308 K/mm3 (140-440); Red Blood Count 4.67 M/mm3 (3.65-5.03); Red Cell Distribution Width 13.3 % (13.2-15.2)
[2021-05-16 05:07] LABS: BUN/Creatinine Ratio 16; Blood Urea Nitrogen 14 mg/dL (7-17); Calcium 9.5 mg/dL (8.4-10.2); Hemolysis Index 15
[2021-05-16] MEDS: INSULIN LISPRO 100 UNIT/ML SUB-Q SCH ×4 (07:38→22:06)
[2021-05-16] MEDS: MORPHINE 2 MG/1 ML INJ IV PRN (07:45)
[2021-05-16] MEDS: ONDANSETRON 4 MG/2 ML INJ IV PRN (09:39)
[2021-05-16] MEDS: HYDROmorphone 1 MG/1 ML INJ IV PRN (09:39)
[2021-05-16 10:49] LABS: Creatine Kinase MB < 1.0 ng/mL (0.0-4.0)
[2021-05-16] MEDS ORDERED: SODIUM CHLORIDE 0.9% 1000 ML 1,000 ML IV ONE (10:57)
--- NOTE | 2021-05-16 11:02 | Progress Note ---
Assessment and Plan 56 y/o female with stroke, s/p TPA 05/16/21: Nausea could be from narcotics. Continue to monitor. MRI today. Follow up neurology recs. Should be stable for transfer to floor. Wean FiO2 as tolerated. 1. Q1 hour neuro checks 2. Hold any antiplatelet therapy until 24 hour post TPA so likely start tomorrow 3. follow up repeat Head CT 4. Blood pressure control 5. Follow up neurology recs. CCT 31minutes. Subjective Date of service: 05/16/21 Interval history: Had an episode of emesis this am of undigested food with epigastric pain. Resolved now post emesis. EKG pending. Did have device interrogated. (loop recorder with no evidence of afib). Asleep now stable vitals and good sats on nasal cannula. Objective - Constitutional Vitals: Vital Signs - 12hr 05/15/21 05/15/21 05/15/21 23:00 23:04 23:10 Temperature Pulse Rate 68 89 72 Pulse Rate [ From Monitor] Respiratory 14 17 14 Rate Blood Pressure 117/57 117/57 117/57 O2 Sat by Pulse 100 98 98 Oximetry 05/15/21 05/15/21 05/15/21 23:20 23:30 23:40 Temperature Pulse Rate 66 66 80 Pulse Rate [ From Monitor] Respiratory 14 14 14 Rate Blood Pressure 117/57 112/60 112/60 O2 Sat by Pulse 97 100 96 Oximetry 05/15/21 05/15/21 05/16/21 23:50 23:59 00:00 Temperature 98.8 F Pulse Rate 72 66 Pulse Rate [ 66 From Monitor] Respiratory 14 13 Rate Blood Pressure 112/60 111/53 O2 Sat by Pulse 97 97 Oximetry 05/16/21 05/16/21 05/16/21 00:10 00:20 00:30 Temperature Pulse Rate 72 82 90 Pulse Rate [ From Monitor] Respiratory 12 12 14 Rate Blood Pressure 111/53 111/53 119/56 O2 Sat by Pulse 98 100 100 Oximetry 05/16/21 05/16/21 05/16/21 00:40 00:50 01:00 Temperature Pulse Rate 66 70 65 Pulse Rate [ From Monitor] Respiratory 13 13 14 Rate Blood Pressure 119/56 119/56 113/60 O2 Sat by Pulse 100 100 100 Oximetry 05/16/21 05/16/21 05/16/21 01:10 01:20 01:30 Temperature Pulse Rate 66 72 59 L Pulse Rate [ From Monitor] Respiratory 12 13 12 Rate Blood Pressure 113/60 113/60 113/60 O2 Sat by Pulse 100 100 100 Oximetry 05/16/21 05/16/21 05/16/21 01:40 01:50 02:00 Temperature Pulse Rate 78 68 76 Pulse Rate [ From Monitor] Respiratory 13 14 12 Rate Blood Pressure 102/51 102/51 102/51 O2 Sat by Pulse 100 100 100 Oximetry 05/16/21 05/16/21 05/16/21 02:10 02:20 02:30 Temperature Pulse Rate 63 63 61 Pulse Rate [ From Monitor] Respiratory 13 13 11 L Rate Blood Pressure 128/67 128/67 106/53 O2 Sat by Pulse 100 100 100 Oximetry 05/16/21 05/16/21 05/16/21 02:40 02:50 03:00 Temperature Pulse Rate 79 80 75 Pulse Rate [ From Monitor] Respiratory 13 15 12 Rate Blood Pressure 106/53 106/53 106/53 O2 Sat by Pulse 100 100 100 Oximetry 05/16/21 05/16/21 05/16/21 03:10 03:20 03:30 Temperature Pulse Rate 65 59 L 71 Pulse Rate [ From Monitor] Respiratory 11 L 12 12 Rate Blood Pressure 122/67 122/67 103/57 O2 Sat by Pulse 100 100 100 Oximetry 05/16/21 05/16/21 05/16/21 03:40 03:50 04:00 Temperature 97.4 F L Pulse Rate 60 57 L 68 Pulse Rate [ 59 L From Monitor] Respiratory 11 L 12 13 Rate Blood Pressure 103/57 103/57 116/59 O2 Sat by Pulse 100 100 100 Oximetry 05/16/21 05/16/21 05/16/21 04:10 04:20 04:30 Temperature Pulse Rate 65 60 71 Pulse Rate [ From Monitor] Respiratory 12 11 L 10 L Rate Blood Pressure 116/59 116/59 116/59 O2 Sat by Pulse 100 100 100 Oximetry 05/16/21 05/16/21 05/16/21 04:40 04:50 05:00 Temperature Pulse Rate 81 68 64 Pulse Rate [ From Monitor] Respiratory 14 12 12 Rate Blood Pressure 128/65 128/65 123/64 O2 Sat by Pulse 100 100 100 Oximetry 05/16/21 05/16/2105/16/22 05:10 05:20 05:30 Temperature Pulse Rate 56 L 56 L 67 Pulse Rate [ From Monitor] Respiratory 13 11 L 15 Rate Blood Pressure 123/64 123/64 131/59 O2 Sat by Pulse 100 100 100 Oximetry 05/16/21 05/16/21 05/16/21 05:40 05:50 06:00 Temperature Pulse Rate 58 L 60 71 Pulse Rate [ From Monitor] Respiratory 12 12 14 Rate Blood Pressure 131/59 131/59 129/69 O2 Sat by Pulse 100 100 100 Oximetry 05/16/21 05/16/21 05/16/21 06:10 06:20 06:30 Temperature Pulse Rate 77 75 64 Pulse Rate [ From Monitor] Respiratory 14 11 L 9 L Rate Blood Pressure 129/69 129/69 120/62 O2 Sat by Pulse 100 100 100 Oximetry 05/16/21 05/16/21 05/16/21 06:40 06:50 07:00 Temperature Pulse Rate 72 68 59 L Pulse Rate [ From Monitor] Respiratory 14 10 L 12 Rate Blood Pressure 120/62 120/62 118/60 O2 Sat by Pulse 100 100 100 Oximetry 05/16/21 05/16/21 05/16/21 07:10 07:20 07:30 Temperature Pulse Rate 62 69 68 Pulse Rate [ From Monitor] Respiratory 11 L 12 11 L Rate Blood Pressure 118/60 118/60 118/60 O2 Sat by Pulse 100 100 100 Oximetry 05/16/21 05/16/21 05/16/21 07:40 07:50 08:00 Temperature 97.4 F L Pulse Rate 80 80 85 Pulse Rate [ 69 From Monitor] Respiratory 12 14 15 Rate Blood Pressure 111/53 111/53 111/53 O2 Sat by Pulse 100 100 100 Oximetry 05/16/21 05/16/21 05/16/21 08:10 08:20 08:30 Temperature Pulse Rate 79 73 79 Pulse Rate [ From Monitor] Respiratory 12 12 15 Rate Blood Pressure 121/70 121/70 121/70 O2 Sat by Pulse 100 99 Oximetry 05/16/21 05/16/21 05/16/21 08:40 08:50 09:00 Temperature Pulse Rate 78 75 81 Pulse Rate [ From Monitor] Respiratory 12 15 14 Rate Blood Pressure 134/69 134/69 134/69 O2 Sat by Pulse 100 99 100 Oximetry 05/16/21 05/16/21 05/16/21 09:10 09:21 09:30 Temperature Pulse Rate 61 74 Pulse Rate [ From Monitor] Respiratory 13 16 Rate Blood Pressure 131/59 129/56 99/58 O2 Sat by Pulse 100 100 100 Oximetry - Labs CBC & Chem 7: 05/16/21 04:32 05/16/21 04:32 Labs: Abnormal lab results 05/15/21 05/15/21 05/15/21 Range/Units 14:37 14:37 16:30 [place] % (Auto) (0.0-7.3) % Eos % (Auto) (0.0-4.3) % Glucose (65-100) mg/dL POC Glucose 109 H (70-105) mg/dL Hemoglobin A1c 6.3 H (4-6) % Triglycerides 333 H (2-149) mg/dL HDL Cholesterol 39 L (40-59) mg/dL 05/16/21 05/16/21 Range/Units 04:32 04:32 [place] % (Auto) 8.5 H (0.0-7.3) % Eos % (Auto) 4.5 H (0.0-4.3) % Glucose 120 H (65-100) mg/dL POC Glucose (70-105) mg/dL Hemoglobin A1c (4-6) % Triglycerides (2-149) mg/dL HDL Cholesterol (40-59) mg/dL Medications & Allergies - Medications Allergies/Adverse Reactions: Allergies codeine Allergy (Verified 04/25/15 18:54) Rash Home Medications: Home Medications Medication Instructions Recorded Confirmed Last Taken Type Acetaminophen [Acetaminophen TAB] 650 mg PO Q4H PRN #10 tablet 02/06/18 05/15/21 Unknown Rx Aspirin 325 mg PO QDAY #30 tablet 02/06/18 05/15/21 Unknown Rx AtorvaSTATin [Lipitor] 40 mg PO QHS #30 tablet 02/06/18 05/15/21 05/14/21 10:00 Rx Lisinopril/Hydrochlorothiazide 1 tab PO QDAY #30 tab 02/06/18 05/15/21 05/14/21 10:00 Rx [Zestoretic 20-25 mg] Metoclopramide 1 tab Q6HR PRN 05/15/21 05/15/21 05/13/21 History amLODIPine [Norvasc] 5 mg PO DAILY 05/15/21 05/15/21 05/14/21 History 08 amLODIPine [Norvasc] 10 mg PO DAILY 05/15/21 05/15/21 05/14/21 History 08 Active Medications: Generic Name Dose Route Start Last Admin Trade Name Freq PRN Reason Stop Dose Admin Acetaminophen 650 mg 05/15/21 00:10 05/15/21 22:02 Acetaminophen 325 Mg Tab PO 650 mg Q4H PRN Administration Pain MILD(1-3)/Fever >100.5/BOOKER Albuterol 2.5 mg 05/15/21 00:10 Albuterol 2.5 Mg/3 Ml Nebu IH Q3HRT PRN Shortness Of Breath Aspirin 81 mg 05/16/21 10:00 Aspirin 81 Mg Tab Chew PO QDAY [facility] Atorvastatin Calcium 80 mg 05/15/21 22:00 05/15/21 22:04 Atorvastatin 40 Mg Tab PO 80 mg QHS OUSMANE Administration Dextrose 50 ml 05/15/21 16:14 Dextrose 50% In Water (25gm) 50 Ml Syringe IV Q30MIN PRN Hypoglycemia Protocol Docusate Sodium 100 mg 05/15/21 22:00 05/15/21 22:05 Docusate Sodium 100 Mg Cap PO 100 mg BID OUSMANE Administration Famotidine 20 mg 05/15/21 11:00 05/15/21 11:00 Famotidine 20 Mg Tab PO 20 mg QDAY [facility] Administration Hydromorphone HCl 0.5 mg 05/15/21 00:10 05/16/21 09:39 Hydromorphone 1 Mg/1 Ml Inj IV 0.5 mg Q3H PRN Administration Pain , Severe (7-10) Hyoscyamine 0.125 mg 05/15/21 00:15 Hyoscyamine Subl 0.125 Mg Tab SL Q6H PRN abdominal cramps and spasms Sodium Chloride 1,000 mls @ 100 mls/hr 05/15/21 00:15 Nacl 0.9% 1000 Ml IV DIRECT [facility] Insulin Human Lispro 0 unit 05/15/21 16:30 05/16/21 07:38 Insulin Lispro 100 Unit/Ml SUB-Q Not Given ACHS [facility] Protocol Labetalol HCl 10 mg 05/15/21 00:10 05/15/21 00:54 Labetalol 20 Mg/4 Ml Inj IV 10 mg Q5MIN PRN Administration to maintain SBP < 180 Morphine Sulfate 2 mg 05/15/21 00:10 05/16/21 09:39 Morphine 2 Mg/1 Ml Inj IV 2 mg Q4H PRN Administration Pain, Moderate (4-6) Ondansetron HCl 4 mg 05/15/21 00:10 05/16/21 09:39 Ondansetron 4 Mg/2 Ml Inj IV 4 mg Q8H PRN Administration Nausea And Vomiting Sodium Chloride 10 ml 05/15/21 10:00 05/15/21 22:05 Sodium Chloride 0.9% 10 Ml Flush Syringe IV 10 ml BID OUSMANE Administration Sodium Chloride 10 ml 05/15/21 00:10 Sodium Chloride 0.9% 10 Ml Flush Syringe IV PRN PRN LINE FLUSH HEART Score - HEART Score Troponin: Troponin T < 0.010 ng/mL (0.00-0.029) 05/16/21 04:38
[2021-05-16] MEDS: ASPIRIN 81 MG TAB CHEW PO SCH (11:37)
[2021-05-16] MEDS: DOCUSATE SODIUM 100 MG CAP PO SCH ×2 (11:37→22:06)
[2021-05-16] MEDS: PANTOPRAZOLE 40 MG INJ IV SCH (12:45)
--- NOTE | 2021-05-16 14:48 | XRay Report ---
ABDOMEN 1 VIEW INDICATION / CLINICAL INFORMATION: multiple episode of emesis. COMPARISON: CT abdomen and pelvis with contrast from 10/15/2018. FINDINGS: TUBES / LINES: None. BOWEL GAS PATTERN: No significant abnormality. FREE AIR / EXTRALUMINAL GAS: None seen. ADDITIONAL FINDINGS: No significant additional findings. IMPRESSION: 1. No significant abnormality. Signer Name: Ezequiel Pagan MD Signed: 05/16/2021 2:44 PM Workstation Name: [email or web address] [id number]
--- NOTE | 2021-05-16 15:31 | Progress Note ---
Assessment and Plan Assessment and plan: This is a 56-year-old female with HTN, TIA, hyperlipidemia admitted with a right-sided CVA s/p TPA Neuro: r/o Right MCA -Neurology consulted, appreciate recommendations -MRI brain pending -S/p TPA on 05/14 2100 -Initial CT head with no acute findings -Repeat CT head with no acute finding -CTA head and neck with no large vessel occlusion or significant stenosis noted -Permissive hypertension for the 24 to 48 hours -LDL profile noted -Hemoglobin A1c 6.3 -Lipitor nightly -CCM consulted, appreciate recommendation -ST/PT/OT consulted, initiate recommendations -Passed bedside swallow and speech evaluation -PT recommends wheelchair and 3 and 1 bedside commode and acute rehab -Neurochecks per protocol Cardiac: h/o HTN, hyperlipidemia -Blood pressure monitoring per protocol -Hold home lisinopril and hydrochlorothiazide -Echocardiogram with LVEF of 60 to 65% no PFO -Loop recorder in stiu -Interrogation completed which showed no atrial fibrillation Respiratory: NAD -Pulmonary hygiene -Supplemental oxygen as needed -SPO2 monitoring GI: Obesity, emesis -Cardiac diet -24 hours -870 -PPI -NTR consulted for tube feedings -BR: Colace -KUB showed stool burden -Dulcolax suppository, fleets enema : Hyponatremia (resolved) -Trend BMP -Monitor neuro status ID: NAD -Monitor WBC and temperature curve Endo: NAD -Avoid hypoglycemia Heme: NAD -Trend CBC -Transfuse hemoglobin less than 7 -Monitor for signs of bleeding -SCDs to BLE while in bed -Start antiplatelets and prophylactic coagulation 24 hours post TPA The high probability of a clinically significant, sudden or life threatening det erioration of the [neuro] system(s) required my full and direct attention, intervention and personal management. The aggregate critical care time was [60] minutes. This time is in addition to time spent performing reported procedures but includes the following: [x] Data Review and interpretation [x] Patient assessment and monitoring of vital signs [x] Documentation [x] Medication orders and management Disposition Plan: Transfer to floor Total Time Spent with Patient (Minutes): 60 History Interval history: This is a 56-year-old female with hypertension, TIA (most recent September 2017), s/p cholecystectomy, hyperlipidemia who presented to the emergency department with left-sided weakness via EMS and last known well was 1950 on 05/14. Work-up in the emergency department included a CTA head and neck and CT head. Telemetry neurology was consulted and deemed the patient candidate for TPA. Patient was also hypertensive on arrival 200/100. Initial NIHSS was 9. Patient was admitted to the hospitalist service with consults to neurology and CCM to the ICU for 24 hours observation post TPA. Hospital course to date: 05/15: Patient passed swallow evaluation at bedside, speech therapy and physical therapy completed evaluations. Awaiting CT head at 2100. MRI brain on hold. RN to contact loop recorder supplier ([employer]) for interpretation and to see if MRI compatible. 05/16: Patient had repeat CT head yesterday evening which showed no acute findings. Loop recorder interrogated by [employer] rep who stated that there was no atrial fibrillation noted just some recordings of ST but nothing recent in the past couple days. Patient had several episodes of emesis and KUB was order ed which showed significant stool burden and Fleet enema/suppository ordered. Patient transferred to telemetry. MRI brain completed. Left-sided weakness/deficits continue. CCM request orthostatic blood pressures Hospitalist Physical - Constitutional Vitals: Temp Pulse Resp BP Pulse Ox 97.8 F 60 10 L 118/63 96 05/16/21 12:00 05/16/21 12:41 05/16/21 12:41 05/16/21 12:53 05/16/21 12:53 General appearance: Present: no acute distress, well-nourished, obese - EENT Eyes: Present: PERRL, EOM intact ENT: hearing intact, clear oral mucosa, dentition normal - Neck Neck: Present: normal ROM - Respiratory Respiratory effort: normal Respiratory: bilateral: CTA - Cardiovascular Rhythm: regular Heart Sounds: Present: S1 & S2. Absent: systolic murmur, diastolic murmur - Extremities Extremities: no ischemia, pulses intact, pulses symmetrical, No edema, normal temperature, normal color Peripheral Pulses: within normal limits - Abdominal General gastrointestinal: soft, non-tender, non-distended, normal bowel sounds - Integumentary Integumentary: Present: warm, dry - Psychiatric Psychiatric: cooperative - Neurologic Neurologic: CNII-XII intact, focal deficits, other (Left-sided facial droop, left-sided decreased sensation, left upper extremity and lower extremity drift with weakness) - Allied Health Allied health notes reviewed: nursing, PT, ST, OT, social work HEART Score - HEART Score Troponin: Troponin T < 0.010 ng/mL (0.00-0.029) 05/16/21 04:38 Results - Labs CBC & Chem 7: 05/16/21 04:32 05/16/21 04:32 Labs: Laboratory Last Values WBC 8.4 K/mm3 (4.5-11.0) 05/16/21 04:32 RBC 4.67 M/mm3 (3.65-5.03) 05/16/21 04:32 Hgb 13.2 gm/dl (10.1-14.3) 05/16/21 04:32 Hct 39.7 % (30.3-42.9) 05/16/21 04:32 MCV 85 fl (79-97) 05/16/21 04:32 MCH 28 pg (28-32) 05/16/21 04:32 MCHC 33 % (30-34) 05/16/21 04:32 RDW 13.3 % (13.2-15.2) 05/16/21 04:32 Plt Count 308 K/mm3 (140-440) 05/16/21 04:32 Lymph % (Auto) 31.1 % (13.4-35.0) 05/16/21 04:32 [place] % (Auto) 8.5 % (0.0-7.3) H 05/16/21 04:32 Eos % (Auto) 4.5 % (0.0-4.3) H 05/16/21 04:32 Baso % (Auto) 0.7 % (0.0-1.8) 05/16/21 04:32 Lymph # (Auto) 2.6 K/mm3 (1.2-5.4) 05/16/21 04:32 [place] # (Auto) 0.7 K/mm3 (0.0-0.8) 05/16/21 04:32 Eos # (Auto) 0.4 K/mm3 (0.0-0.4) 05/16/21 04:32 Baso # (Auto) 0.1 K/mm3 (0.0-0.1) 05/16/21 04:32 Seg Neutrophils % 55.2 % (40.0-70.0) 05/16/21 04:32 Seg Neutrophils # 4.6 K/mm3 (1.8-7.7) 05/16/21 04:32 PT 13.2 Sec. (12.2-14.9) 05/14/21 20:55 INR 0.91 (0.87-1.13) 05/14/21 20:55 APTT 23.8 Sec. (24.2-36.6) L 05/14/21 20:55 Thrombin Time 17.7 Sec. (15.1-19.6) 05/14/21 20:55 Sodium 137 mmol/L (137-145) 05/16/21 04:32 Potassium 4.0 mmol/L (3.6-5.0) 05/16/21 04:32 Chloride 100.5 mmol/L (98-107) 05/16/21 04:32 Carbon Dioxide 25 mmol/L (22-30) 05/16/21 04:32 Anion Gap 16 mmol/L 05/16/21 04:32 BUN 14 mg/dL (7-17) 05/16/21 04:32 Creatinine 0.9 mg/dL (0.6-1.2) 05/16/21 04:32 Estimated GFR > 60 ml/min 05/16/21 04:32 BUN/Creatinine Ratio 16 % 05/16/21 04:32 Glucose 120 mg/dL (65-100) H 05/16/21 04:32 POC Glucose 105 mg/dL (70-105) 05/15/21 21:59 Hemoglobin A1c 6.3 % (4-6) H 05/15/21 14:37 Calcium 9.5 mg/dL (8.4-10.2) 05/16/21 04:32 Phosphorus 4.50 mg/dL (2.5-4.5) 05/16/21 04:32 Magnesium 2.10 mg/dL (1.7-2.3) 05/16/21 04:32 Total Creatine Kinase 30 units/L (30-135) 05/16/21 04:38 CK-MB (CK-2) < 1.0 ng/mL (0.0-4.0) 05/16/21 04:38 CK-MB (CK-2) Rel Index 3.3 (0-4) 05/16/21 04:38 Troponin T < 0.010 ng/mL (0.00-0.029) 05/16/21 04:38 Triglycerides 333 mg/dL (2-149) H 05/15/21 14:37 Cholesterol 188 mg/dL (50-199) 05/15/21 14:37 LDL Cholesterol Direct 111 mg/dL (50-130) 05/15/21 14:37 HDL Cholesterol 39 mg/dL (40-59) L 05/15/21 14:37 Cholesterol/HDL Ratio 4.82 % 05/15/21 14:37 Wilkinson/IV: Voiding Method External Female Catheter Active Medications - Current Medications Current Medications: Generic Name Dose Route Start Last Admin Trade Name Freq PRN Reason Stop Dose Admin Acetaminophen 650 mg 05/15/21 00:10 05/15/21 22:02 Acetaminophen 325 Mg Tab PO 650 mg Q4H PRN Administration Pain MILD(1-3)/Fever >100.5/BOOKER Albuterol 2.5 mg 05/15/21 00:10 Albuterol 2.5 Mg/3 Ml Nebu IH Q3HRT PRN Shortness Of Breath Aspirin 81 mg 05/16/21 10:00 05/16/21 11:37 Aspirin 81 Mg Tab Chew PO Not Given QDAY OUSMANE Atorvastatin Calcium 80 mg 05/15/21 22:00 05/15/21 22:04 Atorvastatin 40 Mg Tab PO 80 mg QHS OUSMANE Administration Bisacodyl 10 mg 05/16/21 16:00 Bisacodyl 10 Mg Rect Supp MD 05/16/21 16:01 QDAY ONE Dextrose 50 ml 05/15/21 16:14 Dextrose 50% In Water (25gm) 50 Ml Syringe IV Q30MIN PRN Hypoglycemia Protocol Docusate Sodium 100 mg 05/15/21 22:00 05/16/21 11:37 Docusate Sodium 100 Mg Cap PO Not Given BID OUSMANE Hydromorphone HCl 0.5 mg 05/15/21 00:10 05/16/21 09:39 Hydromorphone 1 Mg/1 Ml Inj IV 0.5 mg Q3H PRN Administration Pain , Severe (7-10) Hyoscyamine 0.125 mg 05/15/21 00:15 Hyoscyamine Subl 0.125 Mg Tab SL Q6H PRN abdominal cramps and spasms Insulin Human Lispro 0 unit 05/15/21 16:30 05/16/21 11:37 Insulin Lispro 100 Unit/Ml SUB-Q Not Given ACHS [facility] Protocol Labetalol HCl 10 mg 05/15/21 00:10 05/15/21 00:54 Labetalol 20 Mg/4 Ml Inj IV 10 mg Q5MIN PRN Administration to maintain SBP < 180 Morphine Sulfate 2 mg 05/15/21 00:10 05/16/21 07:45 Morphine 2 Mg/1 Ml Inj IV 2 mg Q4H PRN Administration Pain, Moderate (4-6) Ondansetron HCl 4 mg 05/15/21 00:10 05/16/21 09:39 Ondansetron 4 Mg/2 Ml Inj IV 4 mg Q8H PRN Administration Nausea And Vomiting Pantoprazole Sodium 40 mg 05/16/21 12:00 05/16/21 12:45 Pantoprazole 40 Mg Inj IV 40 mg QDAY OUSMANE Administration Sodium Biphosphate/Sodium Phosphate 133 ml 05/16/21 16:00 Fleet Enema MD 05/16/21 18:00 ONCE@1500 OUSMANE Sodium Chloride 10 ml 05/15/21 10:00 05/16/21 11:37 Sodium Chloride 0.9% 10 Ml Flush Syringe IV 10 ml BID OUSMANE Administration Sodium Chloride 10 ml 05/15/21 00:10 Sodium Chloride 0.9% 10 Ml Flush Syringe IV PRN PRN LINE FLUSH
--- NOTE | 2021-05-16 16:03 | Magnetic Resonance Report ---
MR brain wo con INDICATION / CLINICAL INFORMATION: 56 years Female; Rule out Ischemic Stroke., LT SIDED WEAKNESS. TECHNIQUE: Multiplanar, multisequence MR images of the brain were obtained. Mild motion artifact COMPARISON: CT-05/15/2021 FINDINGS: BRAIN / INTRACRANIAL CONTENTS: No acute hemorrhage, mass effect, midline shift, hydrocephalus, or acu te, large territorial infarct. No chronic infarct or atrophy. No significant white matter abnormality . CRANIOCERVICAL JUNCTION: No significant abnormality. VASCULAR FLOW-VOIDS: No significant abnormality. ORBITS: No significant abnormality of visualized orbits. SINUSES / MASTOIDS: No significant abnormality in the visualized paranasal sinuses or mastoid air hussein ls. ADDITIONAL FINDINGS: Prominent soft tissue is seen in the roof the nasopharynx, presumably related to reactive adenoidal tissue. Please clinically correlate. IMPRESSION: 1. No focal mass, hemorrhage, hydrocephalus, or acute ischemia. Signer Name: Eilazar Grimes MD, III Signed: 05/16/2021 3:59 PM Workstation Name: [id number]
[2021-05-16] MEDS: FLEET ENEMA PR SCH ×2 (16:23→18:40)
[2021-05-17] MEDS: FAMOTIDINE 20 MG TAB PO SCH (03:17)
[2021-05-17] MEDS: INSULIN LISPRO 100 UNIT/ML SUB-Q SCH ×4 (07:56→21:31)
[2021-05-17] MEDS: DOCUSATE SODIUM 100 MG CAP PO SCH (09:51)
[2021-05-17] MEDS: PANTOPRAZOLE 40 MG INJ IV SCH (09:51)
[2021-05-17] MEDS: ASPIRIN 81 MG TAB CHEW PO SCH (09:51)
[2021-05-17] MEDS: MORPHINE 2 MG/1 ML INJ IV PRN (09:53)
--- NOTE | 2021-05-17 10:34 | Electrocardiograph Report ---
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
[2021-05-17] MEDS ORDERED: MINERAL OIL ENEMA 133 ML PR NR (11:00)
[2021-05-17] MEDS ORDERED: SENNOSIDES 8.6 MG TAB PO PRN (11:00)
[2021-05-17] MEDS ORDERED: SODIUM CHLORIDE 0.9% 1000 ML 1,000 ML ONE (11:48)
--- NOTE | 2021-05-17 12:55 | Progress Note ---
Assessment and Plan Assessment and plan: 56-year-old female with history of hypertension and CVA was brought to the hospital because of left-sided weakness. Last known well time was approximately 19:50. Patient complains of weakness of left arm and left leg. Patient also complains of decreased sensation light touch of the left upper and left lower extremity. Patient is soft-spoken but answers questions appropriately. Initial CT scan shows no acute intracranial abnormality. Subsequently Case discussed with on-call neurologist and patient is status post TPA. We are going to admit the patient to the ICU. Will consult neurology for evaluation Hospital course to date: 05/15: Patient passed swallow evaluation at bedside, speech therapy and physical therapy completed evaluations. Awaiting CT head at 2099. MRI brain on hold. RN to contact loop recorder supplier ([employer]) for interpretation and to see if MRI compatible. 05/16: Patient had repeat CT head yesterday evening which showed no acute findings. Loop recorder interrogated by [employer] rep who stated that there was no atrial fibrillation noted just some recordings of ST but nothing recent in the past couple days. Patient had several episodes of emesis and KUB was o rdered which showed significant stool burden and Fleet enema/suppository ordered. Patient transferred to telemetry. MRI brain completed. Left-sided weakness/deficits continue. [facility] request orthostatic blood pressures 05/17: Hypotensive today while working with PT, likely orthostasis, ordered 1 L NS. Blood pressure improved with tradelenburg of patient. Patient nausea/vomiting resolved. Awaiting placement to SNF. CM working on arrangements. Neuro: r/o Right MCA -Neurology consulted, appreciate recommendations -MRI brain pending -S/p TPA on 05/14 2099 -Initial CT head with no acute findings -Repeat CT head with no acute finding -CTA head and neck with no large vessel occlusion or significant stenosis noted -Permissive hypertension for the 24 to 48 hours -LDL profile noted -Hemoglobin A1c 6.3 -Lipitor nightly -CCM consulted, appreciate recommendation -ST/PT/OT consulted, initiate recommendations -Passed bedside swallow and speech evaluation -PT recommends wheelchair and 3 and 1 bedside commode and acute rehab -Neurochecks per protocol Cardiac: h/o HTN, hyperlipidemia -Blood pressure monitoring per protocol -Hold home lisinopril and hydrochlorothiazide -Echocardiogram with LVEF of 60 to 65% no PFO -Loop recorder in stiu -Interrogation completed which showed no atrial fibrillation Respiratory: NAD -Pulmonary hygiene -Supplemental oxygen as needed -SPO2 monitoring GI: Obesity, emesis -Cardiac diet -24 hours -870 -PPI -NTR consulted for tube feedings -BR: Colace -KUB showed stool burden -Dulcolax suppository, fleets enema : Hyponatremia (resolved) -Trend BMP -Monitor neuro status ID: NAD -Monitor WBC and temperature curve Endo: NAD -Avoid hypoglycemia Heme: NAD -Trend CBC -Transfuse hemoglobin less than 7 -Monitor for signs of bleeding -SCDs to BLE while in bed -Start antiplatelets and prophylactic coagulation 24 hours post TPA History Interval history: No complaints on initial AM encounter. Strength is improving. Nausea resolved. paged about patient hypotension during PT assessments. Hypotensive and bradycar dic at the time. Explaiend to RN that this is likely orthostatic hypotension from postural changed and ordered normal saline IV. Patient improved with trandelenburg positioning. BP 140's systolic upon reassessment. Patient mentation AOx4. Hospitalist Physical - Physical exam Narrative exam: General appearance: Present: no acute distress, well-nourished, obese - EENT Eyes: Present: PERRL, EOM intact ENT: hearing intact, clear oral mucosa, dentition normal - Neck Neck: Present: normal ROM - Respiratory Respiratory effort: normal Respiratory: bilateral: CTA - Cardiovascular Rhythm: regular Heart Sounds: Present: S1 & S2. Absent: systolic murmur, diastolic murmur - Extremities Extremities: no ischemia, pulses intact, pulses symmetrical, No edema, normal temperature, normal color Peripheral Pulses: within normal limits - Abdominal General gastrointestinal: soft, non-tender, non-distended, normal bowel sounds - Integumentary Integumentary: Present: warm, dry - Psychiatric Psychiatric: cooperative - Neurologic Neurologic: CNII-XII intact, focal deficits, other (Left-sided facial droop, left-sided decreased sensation, left upper extremity and lower extremity drift with weakness) - Allied Health Allied health notes reviewed: nursing, PT, ST, OT, social work - Constitutional Vitals: Temp Pulse Resp BP Pulse Ox 98.6 F 80 16 138/59 93 05/17/21 10:58 05/17/21 10:58 05/17/21 10:58 05/17/21 10:58 05/17/21 10:58 General appearance: Present: no acute distress, well-nourished, obese HEART Score - HEART Score Troponin: Troponin T < 0.010 ng/mL (0.00-0.029) 05/16/21 04:38 Results - Labs CBC & Chem 7: 05/16/21 04:32 05/16/21 04:32 Labs: Laboratory Last Values WBC 8.4 K/mm3 (4.5-11.0) 05/16/21 04:32 RBC 4.67 M/mm3 (3.65-5.03) 05/16/21 04:32 Hgb 13.2 gm/dl (10.1-14.3) 05/16/21 04:32 Hct 39.7 % (30.3-42.9) 05/16/21 04:32 MCV 85 fl (79-97) 05/16/21 04:32 MCH 28 pg (28-32) 05/16/21 04:32 MCHC 33 % (30-34) 05/16/21 04:32 RDW 13.3 % (13.2-15.2) 05/16/21 04:32 Plt Count 308 K/mm3 (140-440) 05/16/21 04:32 Lymph % (Auto) 31.1 % (13.4-35.0) 05/16/21 04:32 [place] % (Auto) 8.5 % (0.0-7.3) H 05/16/21 04:32 Eos % (Auto) 4.5 % (0.0-4.3) H 05/16/21 04:32 Baso % (Auto) 0.7 % (0.0-1.8) 05/16/21 04:32 Lymph # (Auto) 2.6 K/mm3 (1.2-5.4) 05/16/21 04:32 [place] # (Auto) 0.7 K/mm3 (0.0-0.8) 05/16/21 04:32 Eos # (Auto) 0.4 K/mm3 (0.0-0.4) 05/16/21 04:32 Baso # (Auto) 0.1 K/mm3 (0.0-0.1) 05/16/21 04:32 Seg Neutrophils % 55.2 % (40.0-70.0) 05/16/21 04:32 Seg Neutrophils # 4.6 K/mm3 (1.8-7.7) 05/16/21 04:32 PT 13.2 Sec. (12.2-14.9) 05/14/21 20:55 INR 0.91 (0.87-1.13) 05/14/21 20:55 APTT 23.8 Sec. (24.2-36.6) L 05/14/21 20:55 Thrombin Time 17.7 Sec. (15.1-19.6) 05/14/21 20:55 Sodium 137 mmol/L (137-145) 05/16/21 04:32 Potassium 4.0 mmol/L (3.6-5.0) 05/16/21 04:32 Chloride 100.5 mmol/L (98-107) 05/16/21 04:32 Carbon Dioxide 25 mmol/L (22-30) 05/16/21 04:32 Anion Gap 16 mmol/L 05/16/21 04:32 BUN 14 mg/dL (7-17) 05/16/21 04:32 Creatinine 0.9 mg/dL (0.6-1.2) 05/16/21 04:32 Estimated GFR > 60 ml/min 05/16/21 04:32 BUN/Creatinine Ratio 16 % 05/16/21 04:32 Glucose 120 mg/dL (65-100) H 05/16/21 04:32 POC Glucose 132 mg/dL (70-105) H 05/17/21 11:49 Hemoglobin A1c 6.3 % (4-6) H 05/15/21 14:37 Calcium 9.5 mg/dL (8.4-10.2) 05/16/21 04:32 Phosphorus 4.50 mg/dL (2.5-4.5) 05/16/21 04:32 Magnesium 2.10 mg/dL (1.7-2.3) 05/16/21 04:32 Total Creatine Kinase 30 units/L (30-135) 05/16/21 04:38 CK-MB (CK-2) < 1.0 ng/mL (0.0-4.0) 05/16/21 04:38 CK-MB (CK-2) Rel Index 3.3 (0-4) 05/16/21 04:38 Troponin T < 0.010 ng/mL (0.00-0.029) 05/16/21 04:38 Triglycerides 333 mg/dL (2-149) H 05/15/21 14:37 Cholesterol 188 mg/dL (50-199) 05/15/21 14:37 LDL Cholesterol Direct 111 mg/dL (50-130) 05/15/21 14:37 HDL Cholesterol 39 mg/dL (40-59) L 05/15/21 14:37 Cholesterol/HDL Ratio 4.82 % 05/15/21 14:37 Wilkinson/IV: Voiding Method External Female Catheter Active Medications - Current Medications Current Medications: Generic Name Dose Route Start Last Admin Trade Name Freq PRN Reason Stop Dose Admin Acetaminophen 650 mg 05/15/21 00:10 05/15/21 22:02 Acetaminophen 325 Mg Tab PO 650 mg Q4H PRN Administration Pain MILD(1-3)/Fever >100.5/BOKOER Albuterol 2.5 mg 05/15/21 00:10 Albuterol 2.5 Mg/3 Ml Nebu IH Q3HRT PRN Shortness Of Breath Aspirin 81 mg 05/16/21 10:00 05/17/21 09:51 Aspirin 81 Mg Tab Chew PO 81 mg QDAY OUSMANE Administration Atorvastatin Calcium 80 mg 05/15/21 22:00 05/16/21 22:05 Atorvastatin 40 Mg Tab PO 80 mg QHS OUSMANE Administration Dextrose 50 ml 05/15/21 16:14 Dextrose 50% In Water (25gm) 50 Ml Syringe IV Q30MIN PRN Hypoglycemia Protocol Hydromorphone HCl 0.5 mg 05/15/21 00:10 05/16/21 09:39 Hydromorphone 1 Mg/1 Ml Inj IV 0.5 mg Q3H PRN Administration Pain , Severe (7-10) Hyoscyamine 0.125 mg 05/15/21 00:15 Hyoscyamine Subl 0.125 Mg Tab SL Q6H PRN abdominal cramps and spasms Insulin Human Lispro 0 unit 05/15/21 16:30 05/17/21 12:16 Insulin Lispro 100 Unit/Ml SUB-Q Not Given ACHS OUSMANE Protocol Labetalol HCl 10 mg 05/15/21 00:10 05/15/21 00:54 Labetalol 20 Mg/4 Ml Inj IV 10 mg Q5MIN PRN Administration to maintain SBP < 180 Mineral Oil 133 ml 05/17/21 11:00 Mineral Oil Enema 133 Ml NM 05/17/21 13:00 ONCE NR Morphine Sulfate 2 mg 05/15/21 00:10 05/17/21 09:53 Morphine 2 Mg/1 Ml Inj IV 2 mg Q4H PRN Administration Pain, Moderate (4-6) Ondansetron HCl 4 mg 05/15/21 00:10 05/16/21 09:39 Ondansetron 4 Mg/2 Ml Inj IV 4 mg Q8H PRN Administration Nausea And Vomiting Pantoprazole Sodium 40 mg 05/16/21 12:00 05/17/21 09:51 Pantoprazole 40 Mg Inj IV 40 mg QDAY OUSMANE Administration Polyethylene Glycol 17 gm 05/17/21 11:00 Polyethylene Glycol 3350 17 Gm Powder PO BID PRN Constipation Senna 8.6 mg 05/17/21 11:00 Sennosides 8.6 Mg Tab PO Q12H PRN Laxative Effect Sodium Chloride 10 ml 05/15/21 10:00 05/17/21 12:08 Sodium Chloride 0.9% 10 Ml Flush Syringe IV 10 ml BID OUSMANE Administration Sodium Chloride 10 ml 05/15/21 00:10 Sodium Chloride 0.9% 10 Ml Flush Syringe IV PRN PRN LINE FLUSH
[2021-05-17 22:18] LABS: Bacteria,Urine 1+ /HPF (Negative)
[2021-05-17 22:43] LABS: Color,Urine Yellow (Yellow)
[2021-05-17 22:44] LABS: Bilirubin,Urine Negative (Negative); Blood,Urine Negative (Negative); Protein,Urine <15 mg/dL mg/dL (Negative); Urobilinogen,Urine < 2.0 mg/dL (<2.0)
--- NOTE | 2021-05-18 08:18 | Progress Note ---
Assessment and Plan Assessment and plan: 56-year-old female with history of hypertension and CVA was brought to the hospital because of left-sided weakness. Last known well time was approximately 19:50. Patient complains of weakness of left arm and left leg. Patient also complains of decreased sensation light touch of the left upper and left lower extremity. Patient is soft-spoken but answers questions appropriately. Initial CT scan shows no acute intracranial abnormality. Subsequently Case discussed with on-call neurologist and patient is status post TPA. We are going to admit the patient to the ICU. Will consult neurology for evaluation Hospital course to date: 05/15: Patient passed swallow evaluation at bedside, speech therapy and physical therapy completed evaluations. Awaiting CT head at 2099. MRI brain on hold. RN to contact loop recorder supplier ([employer]) for interpretation and to see if MRI compatible. 05/16: Patient had repeat CT head yesterday evening which showed no acute findings. Loop recorder interrogated by [employer] rep who stated that there was no atrial fibrillation noted just some recordings of ST but nothing recent in the past couple days. Patient had several episodes of emesis and KUB was o rdered which showed significant stool burden and Fleet enema/suppository ordered. Patient transferred to telemetry. MRI brain completed. Left-sided weakness/deficits continue. [facility] request orthostatic blood pressures 05/17: Hypotensive today while working with PT, likely orthostasis, ordered 1 L NS. Blood pressure improved with tradelenburg of patient. Patient nausea/vomiting resolved. Awaiting placement to SNF. CM working on arrangements. 05/18: pending rehab placement. VSS Neuro: TIA vs Ischemic CVA s/p tPA, left sided weakness -Neurology consulted, appreciate recommendations -MRI brain pending -S/p TPA on 05/14 2099 -Initial CT head with no acute findings -Repeat CT head with no acute finding -CTA head and neck with no large vessel occlusion or significant stenosis noted -Permissive hypertension for the 24 to 48 hours -LDL profile noted -Hemoglobin A1c 6.3 - MR brain: negative for ischemic stroke -Lipitor nightly -CCM consulted, appreciate recommendation -ST/PT/OT consulted, initiate recommendations -Passed bedside swallow and speech evaluation -PT recommends wheelchair and 3 and 1 bedside commode and acute rehab -Neurochecks per protocol Cardiac: h/o HTN, hyperlipidemia -Blood pressure monitoring per protocol -Hold home lisinopril and hydrochlorothiazide -Echocardiogram with LVEF of 60 to 65% no PFO -Loop recorder in stiu -Interrogation completed which showed no atrial fibrillation Respiratory: NAD -Pulmonary hygiene -Supplemental oxygen as needed -SPO2 monitoring GI: Obesity, emesis -Cardiac diet -24 hours -870 -PPI -NTR consulted for tube feedings -BR: Colace -KUB showed stool burden -Dulcolax suppository, fleets enema : Hyponatremia (resolved) -Trend BMP -Monitor neuro status ID: NAD -Monitor WBC and temperature curve Endo: NAD -Avoid hypoglycemia Heme: NAD -Trend CBC -Transfuse hemoglobin less than 7 -Monitor for signs of bleeding -SCDs to BLE while in bed -Start antiplatelets and prophylactic coagulation 24 hours post TPA History Interval history: I saw and examined the patient at bedside today. Patient states that she is feeling well. Her appetite is significantly improved. Weakness is slowly resolving. Jose Daniel Hospitalist Physical - Physical exam Narrative exam: General appearance: Present: no acute distress, well-nourished, obese - EENT Eyes: Present: PERRL, EOM intact ENT: hearing intact, clear oral mucosa, dentition normal - Neck Neck: Present: normal ROM - Respiratory Respiratory effort: normal Respiratory: bilateral: CTA - Cardiovascular Rhythm: regular Heart Sounds: Present: S1 & S2. Absent: systolic murmur, diastolic murmur - Extremities Extremities: no ischemia, pulses intact, pulses symmetrical, No edema, normal temperature, normal color Peripheral Pulses: within normal limits - Abdominal General gastrointestinal: soft, non-tender, non-distended, normal bowel sounds - Integumentary Integumentary: Present: warm, dry - Psychiatric Psychiatric: cooperative - Neurologic Neurologic: CNII-XII intact, focal deficits, other (Left-sided facial droop, left-sided decreased sensation, left upper extremity and lower extremity drift with weakness) - Allied Health Allied health notes reviewed: nursing, PT, ST, OT, social work - Constitutional Vitals: Temp Pulse Resp BP Pulse Ox 98.0 F 74 18 149/83 98 05/18/21 07:19 05/18/21 08:07 05/18/21 08:07 05/18/21 07:19 05/18/21 08:07 General appearance: Present: no acute distress, well-nourished, obese HEART Score - HEART Score Troponin: Troponin T < 0.010 ng/mL (0.00-0.029) 05/16/21 04:38 Results - Labs CBC & Chem 7: 05/16/21 04:32 05/16/21 04:32 Labs: Laboratory Last Values WBC 8.4 K/mm3 (4.5-11.0) 05/16/21 04:32 RBC 4.67 M/mm3 (3.65-5.03) 05/16/21 04:32 Hgb 13.2 gm/dl (10.1-14.3) 05/16/21 04:32 Hct 39.7 % (30.3-42.9) 05/16/21 04:32 MCV 85 fl (79-97) 05/16/21 04:32 MCH 28 pg (28-32) 05/16/21 04:32 MCHC 33 % (30-34) 05/16/21 04:32 RDW 13.3 % (13.2-15.2) 05/16/21 04:32 Plt Count 308 K/mm3 (140-440) 05/16/21 04:32 Lymph % (Auto) 31.1 % (13.4-35.0) 05/16/21 04:32 [place] % (Auto) 8.5 % (0.0-7.3) H 05/16/21 04:32 Eos % (Auto) 4.5 % (0.0-4.3) H 05/16/21 04:32 Baso % (Auto) 0.7 % (0.0-1.8) 05/16/21 04:32 Lymph # (Auto) 2.6 K/mm3 (1.2-5.4) 05/16/21 04:32 [place] # (Auto) 0.7 K/mm3 (0.0-0.8) 05/16/21 04:32 Eos # (Auto) 0.4 K/mm3 (0.0-0.4) 05/16/21 04:32 Baso # (Auto) 0.1 K/mm3 (0.0-0.1) 05/16/21 04:32 Seg Neutrophils % 55.2 % (40.0-70.0) 05/16/21 04:32 Seg Neutrophils # 4.6 K/mm3 (1.8-7.7) 05/16/21 04:32 PT 13.2 Sec. (12.2-14.9) 05/14/21 20:55 INR 0.91 (0.87-1.13) 05/14/21 20:55 APTT 23.8 Sec. (24.2-36.6) L 05/14/21 20:55 Thrombin Time 17.7 Sec. (15.1-19.6) 05/14/21 20:55 Sodium 137 mmol/L (137-145) 05/16/21 04:32 Potassium 4.0 mmol/L (3.6-5.0) 05/16/21 04:32 Chloride 100.5 mmol/L (98-107) 05/16/21 04:32 Carbon Dioxide 25 mmol/L (22-30) 05/16/21 04:32 Anion Gap 16 mmol/L 05/16/21 04:32 BUN 14 mg/dL (7-17) 05/16/21 04:32 Creatinine 0.9 mg/dL (0.6-1.2) 05/16/21 04:32 Estimated GFR > 60 ml/min 05/16/21 04:32 BUN/Creatinine Ratio 16 % 05/16/21 04:32 Glucose 120 mg/dL (65-100) H 05/16/21 04:32 POC Glucose 109 mg/dL (70-105) H 05/18/21 07:17 Hemoglobin A1c 6.3 % (4-6) H 05/15/21 14:37 Calcium 9.5 mg/dL (8.4-10.2) 05/16/21 04:32 Phosphorus 4.50 mg/dL (2.5-4.5) 05/16/21 04:32 Magnesium 2.10 mg/dL (1.7-2.3) 05/16/21 04:32 Total Creatine Kinase 30 units/L (30-135) 05/16/21 04:38 CK-MB (CK-2) < 1.0 ng/mL (0.0-4.0) 05/16/21 04:38 CK-MB (CK-2) Rel Index 3.3 (0-4) 05/16/21 04:38 Troponin T < 0.010 ng/mL (0.00-0.029) 05/16/21 04:38 Triglycerides 333 mg/dL (2-149) H 05/15/21 14:37 Cholesterol 188 mg/dL (50-199) 05/15/21 14:37 LDL Cholesterol Direct 111 mg/dL (50-130) 05/15/21 14:37 HDL Cholesterol 39 mg/dL (40-59) L 05/15/21 14:37 Cholesterol/HDL Ratio 4.82 % 05/15/21 14:37 Urine Color Yellow (Yellow) 05/17/21 15:32 Urine Turbidity Clear (Clear) 05/17/21 15:32 Urine pH 6.0 (5.0-7.0) 05/17/21 15:32 Ur Specific [place] 1.020 (1.003-1.030) 05/17/21 15:32 Urine Protein <15 mg/dl mg/dL (Negative) 05/17/21 15:32 Urine Glucose (UA) Negative mg/dL (Negative) 05/17/21 15:32 Urine Ketones Negative mg/dL (Negative) 05/17/21 15:32 Urine Blood Negative (Negative) 05/17/21 15:32 Urine Nitrite Neg (Negative) 05/17/21 15:32 Ur Reducing Substances Not Reportable 05/17/21 15:32 Urine Bilirubin Negative (Negative) 05/17/21 15:32 Urine Ictotest Not Reportable 05/17/21 15:32 Urine Urobilinogen < 2.0 mg/dL (<2.0) 05/17/21 15:32 Ur Leukocyte Esterase Neg (Negative) 05/17/21 15:32 Urine WBC (Auto) 1.0 /HPF (0.0-6.0) 05/17/21 15:32 Urine RBC (Auto) 2.0 /HPF (0.0-6.0) 05/17/21 15:32 U Epithel Cells (Auto) 1.0 /HPF (0-13.0) 05/17/21 15:32 Urine Bacteria (Auto) 1+ /HPF (Negative) 05/17/21 15:32 Wilkinson/IV: Voiding Method External Female Catheter Active Medications - Current Medications Current Medications: Generic Name Dose Route Start Last Admin Trade Name Freq PRN Reason Stop Dose Admin Acetaminophen 650 mg 05/15/21 00:10 05/15/21 22:02 Acetaminophen 325 Mg Tab PO 650 mg Q4H PRN Administration Pain MILD(1-3)/Fever >100.5/[employer] Albuterol 2.5 mg 05/15/21 00:10 Albuterol 2.5 Mg/3 Ml Nebu IH Q3HRT PRN Shortness Of Breath Aspirin 81 mg 05/16/21 10:00 05/17/21 09:51 Aspirin 81 Mg Tab Chew PO 81 mg QDAY OUSMANE Administration Atorvastatin Calcium 80 mg 05/15/21 22:00 05/17/21 21:31 Atorvastatin 40 Mg Tab PO 80 mg QHS OUSMANE Administration Dextrose 50 ml 05/15/21 16:14 Dextrose 50% In Water (25gm) 50 Ml Syringe IV Q30MIN PRN Hypoglycemia Protocol Hydromorphone HCl 0.5 mg 05/15/21 00:10 05/16/21 09:39 Hydromorphone 1 Mg/1 Ml Inj IV 0.5 mg Q3H PRN Administration Pain , Severe (7-10) Hyoscyamine 0.125 mg 05/15/21 00:15 Hyoscyamine Subl 0.125 Mg Tab SL Q6H PRN abdominal cramps and spasms Insulin Human Lispro 0 unit 05/15/21 16:30 05/17/21 21:31 Insulin Lispro 100 Unit/Ml SUB-Q Not Given ACHS [facility] Protocol Labetalol HCl 10 mg 05/15/21 00:10 05/15/21 00:54 Labetalol 20 Mg/4 Ml Inj IV 10 mg Q5MIN PRN Administration to maintain SBP < 180 Morphine Sulfate 2 mg 05/15/21 00:10 05/17/21 09:53 Morphine 2 Mg/1 Ml Inj IV 2 mg Q4H PRN Administration Pain, Moderate (4-6) Ondansetron HCl 4 mg 05/15/21 00:10 05/16/21 09:39 Ondansetron 4 Mg/2 Ml Inj IV 4 mg Q8H PRN Administration Nausea And Vomiting Pantoprazole Sodium 40 mg 05/16/21 12:00 05/17/21 09:51 Pantoprazole 40 Mg Inj IV 40 mg QDAY OUSMANE Administration Polyethylene Glycol 17 gm 05/17/21 11:00 Polyethylene Glycol 3350 17 Gm Powder PO BID PRN Constipation Senna 8.6 mg 05/17/21 11:00 Sennosides 8.6 Mg Tab PO Q12H PRN Laxative Effect Sodium Chloride 10 ml 05/15/21 10:00 05/17/21 21:38 Sodium Chloride 0.9% 10 Ml Flush Syringe IV 10 ml BID OUSMANE Administration Sodium Chloride 10 ml 05/15/21 00:10 Sodium Chloride 0.9% 10 Ml Flush Syringe IV PRN PRN LINE FLUSH
[2021-05-18] MEDS: INSULIN LISPRO 100 UNIT/ML SUB-Q SCH ×4 (08:34→21:33)
[2021-05-18] MEDS: PANTOPRAZOLE 40 MG INJ IV SCH (09:14)
[2021-05-18] MEDS: ASPIRIN 81 MG TAB CHEW PO SCH (09:14)
[2021-05-18] MEDS: ACETAMINOPHEN 325 MG TAB PO PRN ×2 (09:16→21:35)
--- NOTE | 2021-05-19 08:07 | Progress Note ---
Assessment and Plan Assessment and plan: 56-year-old female with history of hypertension and CVA was brought to the hospital because of left-sided weakness. Last known well time was approximately 19:50. Patient complains of weakness of left arm and left leg. Patient also complains of decreased sensation light touch of the left upper and left lower extremity. Patient is soft-spoken but answers questions appropriately. Initial CT scan shows no acute intracranial abnormality. Subsequently Case discussed with on-call neurologist and patient is status post TPA. We are going to admit the patient to the ICU. Will consult neurology for evaluation Hospital course to date: 05/15: Patient passed swallow evaluation at bedside, speech therapy and physical therapy completed evaluations. Awaiting CT head at 2099. MRI brain on hold. RN to contact loop recorder supplier ([employer]) for interpretation and to see if MRI compatible. 05/16: Patient had repeat CT head yesterday evening which showed no acute findings. Loop recorder interrogated by [employer] rep who stated that there was no atrial fibrillation noted just some recordings of ST but nothing recent in the past couple days. Patient had several episodes of emesis and KUB was o rdered which showed significant stool burden and Fleet enema/suppository ordered. Patient transferred to telemetry. MRI brain completed. Left-sided weakness/deficits continue. [facility] blood pressures 05/17: Hypotensive today while working with PT, likely orthostasis, ordered 1 L NS. Blood pressure improved with tradelenburg of patient. Patient nausea/vomiting resolved. Awaiting placement to SNF. CM working on arrangements. 05/18: pending rehab placement. VSS 05/19: Vital signs stable. No acute complaints. Pending rehab placement. I have asked the RN to get a reassessment by physical therapy as patient appears to have demonstrated improved strength in bilateral upper and lower extremities. Neuro: TIA vs Ischemic CVA s/p tPA, left sided weakness -Neurology consulted, appreciate recommendations -MRI brain pending -S/p TPA on 05/14 2099 -Initial CT head with no acute findings -Repeat CT head with no acute finding -CTA head and neck with no large vessel occlusion or significant stenosis noted -Permissive hypertension for the 24 to 48 hours -LDL profile noted -Hemoglobin A1c 6.3 - MR brain: negative for ischemic stroke -Lipitor nightly -CCM consulted, appreciate recommendation -ST/PT/OT consulted, initiate recommendations -Passed bedside swallow and speech evaluation -PT recommends wheelchair and 3 and 1 bedside commode and acute rehab -Neurochecks per protocol Cardiac: h/o HTN, hyperlipidemia -Blood pressure monitoring per protocol -Hold home lisinopril and hydrochlorothiazide -Echocardiogram with LVEF of 60 to 65% no PFO -Loop recorder in stiu -Interrogation completed which showed no atrial fibrillation Respiratory: NAD -Pulmonary hygiene -Supplemental oxygen as needed -SPO2 monitoring GI: Obesity, emesis -Cardiac diet -24 hours -870 -PPI -NTR consulted for tube feedings -BR: Colace -KUB showed stool burden -Dulcolax suppository, fleets enema : Hyponatremia (resolved) -Trend BMP -Monitor neuro status ID: NAD -Monitor WBC and temperature curve Endo: NAD -Avoid hypoglycemia Heme: NAD -Trend CBC -Transfuse hemoglobin less than 7 -Monitor for signs of bleeding -SCDs to BLE while in bed -Start antiplatelets and prophylactic coagulation 24 hours post TPA History Interval history: No acute complaints this AM on bedside encounter. Hospitalist Physical - Physical exam Narrative exam: General appearance: Present: no acute distress, well-nourished, obese - EENT Eyes: Present: PERRL, EOM intact ENT: hearing intact, clear oral mucosa, dentition normal - Neck Neck: Present: normal ROM - Respiratory Respiratory effort: normal Respiratory: bilateral: CTA - Cardiovascular Rhythm: regular Heart Sounds: Present: S1 & S2. Absent: systolic murmur, diastolic murmur - Extremities Extremities: no ischemia, pulses intact, pulses symmetrical, No edema, normal temperature, normal color Peripheral Pulses: within normal limits - Abdominal General gastrointestinal: soft, non-tender, non-distended, normal bowel sounds - Integumentary Integumentary: Present: warm, dry - Psychiatric Psychiatric: cooperative - Neurologic Neurologic: CNII-XII intact, focal deficits, other (Left-sided facial droop, left-sided decreased sensation, left upper extremity and lower extremity drift with weakness) - Allied Health Allied health notes reviewed: nursing, PT, ST, OT, social work - Constitutional Vitals: Temp Pulse Resp BP Pulse Ox 97.6 F 59 L 16 169/70 95 05/19/21 03:53 05/19/21 05:00 05/19/21 03:53 05/19/21 03:53 05/19/21 03:53 General appearance: Present: no acute distress, well-nourished, obese HEART Score - HEART Score Troponin: Troponin T < 0.010 ng/mL (0.00-0.029) 05/16/21 04:38 Results - Labs CBC & Chem 7: 05/16/21 04:32 05/16/21 04:32 Labs: Laboratory Last Values WBC 8.4 K/mm3 (4.5-11.0) 05/16/21 04:32 RBC 4.67 M/mm3 (3.65-5.03) 05/16/21 04:32 Hgb 13.2 gm/dl (10.1-14.3) 05/16/21 04:32 Hct 39.7 % (30.3-42.9) 05/16/21 04:32 MCV 85 fl (79-97) 05/16/21 04:32 MCH 28 pg (28-32) 05/16/21 04:32 MCHC 33 % (30-34) 05/16/21 04:32 RDW 13.3 % (13.2-15.2) 05/16/21 04:32 Plt Count 308 K/mm3 (140-440) 05/16/21 04:32 Lymph % (Auto) 31.1 % (13.4-35.0) 05/16/21 04:32 [place] % (Auto) 8.5 % (0.0-7.3) H 05/16/21 04:32 Eos % (Auto) 4.5 % (0.0-4.3) H 05/16/21 04:32 Baso % (Auto) 0.7 % (0.0-1.8) 05/16/21 04:32 Lymph # (Auto) 2.6 K/mm3 (1.2-5.4) 05/16/21 04:32 [place] # (Auto) 0.7 K/mm3 (0.0-0.8) 05/16/21 04:32 Eos # (Auto) 0.4 K/mm3 (0.0-0.4) 05/16/21 04:32 Baso # (Auto) 0.1 K/mm3 (0.0-0.1) 05/16/21 04:32 Seg Neutrophils % 55.2 % (40.0-70.0) 05/16/21 04:32 Seg Neutrophils # 4.6 K/mm3 (1.8-7.7) 05/16/21 04:32 PT 13.2 Sec. (12.2-14.9) 05/14/21 20:55 INR 0.91 (0.87-1.13) 05/14/21 20:55 APTT 23.8 Sec. (24.2-36.6) L 05/14/21 20:55 Thrombin Time 17.7 Sec. (15.1-19.6) 05/14/21 20:55 Sodium 137 mmol/L (137-145) 05/16/21 04:32 Potassium 4.0 mmol/L (3.6-5.0) 05/16/21 04:32 Chloride 100.5 mmol/L (98-107) 05/16/21 04:32 Carbon Dioxide 25 mmol/L (22-30) 05/16/21 04:32 Anion Gap 16 mmol/L 05/16/21 04:32 BUN 14 mg/dL (7-17) 05/16/21 04:32 Creatinine 0.9 mg/dL (0.6-1.2) 05/16/21 04:32 Estimated GFR > 60 ml/min 05/16/21 04:32 BUN/Creatinine Ratio 16 % 05/16/21 04:32 Glucose 120 mg/dL (65-100) H 05/16/21 04:32 POC Glucose 104 mg/dL (70-105) 05/18/21 20:17 Hemoglobin A1c 6.3 % (4-6) H 05/15/21 14:37 Calcium 9.5 mg/dL (8.4-10.2) 05/16/21 04:32 Phosphorus 4.50 mg/dL (2.5-4.5) 05/16/21 04:32 Magnesium 2.10 mg/dL (1.7-2.3) 05/16/21 04:32 Total Creatine Kinase 30 units/L (30-135) 05/16/21 04:38 CK-MB (CK-2) < 1.0 ng/mL (0.0-4.0) 05/16/21 04:38 CK-MB (CK-2) Rel Index 3.3 (0-4) 05/16/21 04:38 Troponin T < 0.010 ng/mL (0.00-0.029) 05/16/21 04:38 Triglycerides 333 mg/dL (2-149) H 05/15/21 14:37 Cholesterol 188 mg/dL (50-199) 05/15/21 14:37 LDL Cholesterol Direct 111 mg/dL (50-130) 05/15/21 14:37 HDL Cholesterol 39 mg/dL (40-59) L 05/15/21 14:37 Cholesterol/HDL Ratio 4.82 % 05/15/21 14:37 Urine Color Yellow (Yellow) 05/17/21 15:32 Urine Turbidity Clear (Clear) 05/17/21 15:32 Urine pH 6.0 (5.0-7.0) 05/17/21 15:32 Ur Specific [place] 1.020 (1.003-1.030) 05/17/21 15:32 Urine Protein <15 mg/dl mg/dL (Negative) 05/17/21 15:32 Urine Glucose (UA) Negative mg/dL (Negative) 05/17/21 15:32 Urine Ketones Negative mg/dL (Negative) 05/17/21 15:32 Urine Blood Negative (Negative) 05/17/21 15:32 Urine Nitrite Neg (Negative) 05/17/21 15:32 Ur Reducing Substances Not Reportable 05/17/21 15:32 Urine Bilirubin Negative (Negative) 05/17/21 15:32 Urine Ictotest Not Reportable 05/17/21 15:32 Urine Urobilinogen < 2.0 mg/dL (<2.0) 05/17/21 15:32 Ur Leukocyte Esterase Neg (Negative) 05/17/21 15:32 Urine WBC (Auto) 1.0 /HPF (0.0-6.0) 05/17/21 15:32 Urine RBC (Auto) 2.0 /HPF (0.0-6.0) 05/17/21 15:32 U Epithel Cells (Auto) 1.0 /HPF (0-13.0) 05/17/21 15:32 Urine Bacteria (Auto) 1+ /HPF (Negative) 05/17/21 15:32 Wilkinson/IV: Voiding Method External Female Catheter Active Medications - Current Medications Current Medications: Generic Name Dose Route Start Last Admin Trade Name Freq PRN Reason Stop Dose Admin Acetaminophen 650 mg 05/15/21 00:10 05/18/21 21:35 Acetaminophen 325 Mg Tab PO 650 mg Q4H PRN Administration Pain MILD(1-3)/Fever >100.5/[employer] Albuterol 2.5 mg 05/15/21 00:10 Albuterol 2.5 Mg/3 Ml Nebu IH Q3HRT PRN Shortness Of Breath Aspirin 81 mg 05/16/21 10:00 05/18/21 09:14 Aspirin 81 Mg Tab Chew PO 81 mg QDAY OUSMANE Administration Atorvastatin Calcium 80 mg 05/15/21 22:00 05/18/21 21:32 Atorvastatin 40 Mg Tab PO 80 mg QHS OUSMANE Administration Dextrose 50 ml 05/15/21 16:14 Dextrose 50% In Water (25gm) 50 Ml Syringe IV Q30MIN PRN Hypoglycemia Protocol Hyoscyamine 0.125 mg 05/15/21 00:15 Hyoscyamine Subl 0.125 Mg Tab SL Q6H PRN abdominal cramps and spasms Insulin Human Lispro 0 unit 05/15/21 16:30 05/18/21 21:33 Insulin Lispro 100 Unit/Ml SUB-Q Not Given ACHS [facility] Protocol Labetalol HCl 10 mg 05/15/21 00:10 05/15/21 00:54 Labetalol 20 Mg/4 Ml Inj IV 10 mg Q5MIN PRN Administration to maintain SBP < 180 Ondansetron HCl 4 mg 05/15/21 00:10 05/16/21 09:39 Ondansetron 4 Mg/2 Ml Inj IV 4 mg Q8H PRN Administration Nausea And Vomiting Pantoprazole Sodium 40 mg 05/19/21 10:00 Pantoprazole 40 Mg Tab PO DAILY OUSMANE Polyethylene Glycol 17 gm 05/17/21 11:00 Polyethylene Glycol 3350 17 Gm Powder PO BID PRN Constipation Senna 8.6 mg 05/17/21 11:00 Sennosides 8.6 Mg Tab PO Q12H PRN Laxative Effect Sodium Chloride 10 ml 05/15/21 10:00 05/18/21 21:32 Sodium Chloride 0.9% 10 Ml Flush Syringe IV 10 ml BID OUSMANE Administration Sodium Chloride 10 ml 05/15/21 00:10 Sodium Chloride 0.9% 10 Ml Flush Syringe IV PRN PRN LINE FLUSH
[2021-05-19] MEDS: INSULIN LISPRO 100 UNIT/ML SUB-Q SCH ×4 (09:45→21:52)
[2021-05-19] MEDS: POLYETHYLENE GLYCOL 3350 17 GM POWDER PO PRN (10:07)
[2021-05-19] MEDS: ASPIRIN 81 MG TAB CHEW PO SCH (10:08)
[2021-05-19] MEDS: PANTOPRAZOLE 40 MG TAB PO SCH (10:08)
[2021-05-19] MEDS: ACETAMINOPHEN 325 MG TAB PO PRN (10:11)
[2021-05-20] MEDS: INSULIN LISPRO 100 UNIT/ML SUB-Q SCH ×4 (07:30→22:19)
[2021-05-20] MEDS: POLYETHYLENE GLYCOL 3350 17 GM POWDER PO PRN (08:47)
[2021-05-20] MEDS: ASPIRIN 81 MG TAB CHEW PO SCH (09:02)
[2021-05-20] MEDS: PANTOPRAZOLE 40 MG TAB PO SCH (09:03)
--- NOTE | 2021-05-20 09:19 | Progress Note ---
Assessment and Plan Assessment and plan: 56-year-old female with history of hypertension and CVA was brought to the hospital because of left-sided weakness. Last known well time was approximately 19:50. Patient complains of weakness of left arm and left leg. Patient also complains of decreased sensation light touch of the left upper and left lower extremity. Patient is soft-spoken but answers questions appropriately. Initial CT scan shows no acute intracranial abnormality. Subsequently Case discussed with on-call neurologist and patient is status post TPA. We are going to admit the patient to the ICU. Will consult neurology for evaluation Hospital course to date: 05/15: Patient passed swallow evaluation at bedside, speech therapy and physical therapy completed evaluations. Awaiting CT head at 2099. MRI brain on hold. RN to contact loop recorder supplier ([employer]) for interpretation and to see if MRI compatible. 05/16: Patient had repeat CT head yesterday evening which showed no acute findings. Loop recorder interrogated by [employer] rep who stated that there was no atrial fibrillation noted just some recordings of ST but nothing recent in the past couple days. Patient had several episodes of emesis and KUB was o rdered which showed significant stool burden and Fleet enema/suppository ordered. Patient transferred to telemetry. MRI brain completed. Left-sided weakness/deficits continue. [facility] request orthostatic blood pressures 05/17: Hypotensive today while working with PT, likely orthostasis, ordered 1 L NS. Blood pressure improved with tradelenburg of patient. Patient nausea/vomiting resolved. Awaiting placement to SNF. CM working on arrangements. 05/18: pending rehab placement. VSS 05/19: Vital signs stable. No acute complaints. Pending rehab placement. I have asked the RN to get a reassessment by physical therapy as patient appears to have demonstrated improved strength in bilateral upper and lower extremities. 05/20: No acute medical complaints today. Declining acute rehab facility as benjamín mmended by Pt. Would like home health care pt instead. Will work with cm for arrangements. Anticipate d/c friday. Neuro: TIA vs Ischemic CVA s/p tPA, left sided weakness -Neurology consulted, appreciate recommendations -MRI brain pending -S/p TPA on 05/14 2099 -Initial CT head with no acute findings -Repeat CT head with no acute finding -CTA head and neck with no large vessel occlusion or significant stenosis noted -Permissive hypertension for the 24 to 48 hours -LDL profile noted -Hemoglobin A1c 6.3 - MR brain: negative for ischemic stroke -Lipitor nightly -CCM consulted, appreciate recommendation -ST/PT/OT consulted, initiate recommendations -Passed bedside swallow and speech evaluation -PT recommends wheelchair and 3 and 1 bedside commode and acute rehab -Neurochecks per protocol Cardiac: h/o HTN, hyperlipidemia -Blood pressure monitoring per protocol -Hold home lisinopril and hydrochlorothiazide -Echocardiogram with LVEF of 60 to 65% no PFO -Loop recorder in stiu -Interrogation completed which showed no atrial fibrillation Respiratory: NAD -Pulmonary hygiene -Supplemental oxygen as needed -SPO2 monitoring GI: Obesity, emesis -Cardiac diet -24 hours -870 -PPI -NTR consulted for tube feedings -BR: Colace -KUB showed stool burden -Dulcolax suppository, fleets enema : Hyponatremia (resolved) -Trend BMP -Monitor neuro status ID: NAD -Monitor WBC and temperature curve Endo: NAD -Avoid hypoglycemia Heme: NAD -Trend CBC -Transfuse hemoglobin less than 7 -Monitor for signs of bleeding -SCDs to BLE while in bed -Start antiplatelets and prophylactic coagulation 24 hours post TPA History Interval history: No acute complaints this AM on bedside encounter. Spoke with son who was at bedside and sister who was on phone. Hospitalist Physical - Physical exam Narrative exam: General appearance: Present: no acute distress, well-nourished, obese - EENT Eyes: Present: PERRL, EOM intact ENT: hearing intact, clear oral mucosa, dentition normal - Neck Neck: Present: normal ROM - Respiratory Respiratory effort: normal Respiratory: bilateral: CTA - Cardiovascular Rhythm: regular Heart Sounds: Present: S1 & S2. Absent: systolic murmur, diastolic murmur - Extremities Extremities: no ischemia, pulses intact, pulses symmetrical, No edema, normal temperature, normal color Peripheral Pulses: within normal limits - Abdominal General gastrointestinal: soft, non-tender, non-distended, normal bowel sounds - Integumentary Integumentary: Present: warm, dry - Psychiatric Psychiatric: cooperative - Neurologic Neurologic: CNII-XII intact, focal deficits, other (Left-sided facial droop, left-sided decreased sensation, left upper extremity and lower extremity drift with weakness) - Allied Health Allied health notes reviewed: nursing, PT, ST, OT, social work - Constitutional Vitals: Temp Pulse Resp BP Pulse Ox 99.0 F 81 16 139/75 97 05/20/21 08:37 05/20/21 08:37 05/20/21 03:41 05/20/21 08:37 05/20/21 08:37 General appearance: Present: no acute distress, well-nourished, obese HEART Score - HEART Score Troponin: Troponin T < 0.010 ng/mL (0.00-0.029) 05/16/21 04:38 Results - Labs CBC & Chem 7: 05/16/21 04:32 05/16/21 04:32 Labs: Laboratory Last Values WBC 8.4 K/mm3 (4.5-11.0) 05/16/21 04:32 RBC 4.67 M/mm3 (3.65-5.03) 05/16/21 04:32 Hgb 13.2 gm/dl (10.1-14.3) 05/16/21 04:32 Hct 39.7 % (30.3-42.9) 05/16/21 04:32 MCV 85 fl (79-97) 05/16/21 04:32 MCH 28 pg (28-32) 05/16/21 04:32 MCHC 33 % (30-34) 05/16/21 04:32 RDW 13.3 % (13.2-15.2) 05/16/21 04:32 Plt Count 308 K/mm3 (140-440) 05/16/21 04:32 Lymph % (Auto) 31.1 % (13.4-35.0) 05/16/21 04:32 [place] % (Auto) 8.5 % (0.0-7.3) H 05/16/21 04:32 Eos % (Auto) 4.5 % (0.0-4.3) H 05/16/21 04:32 Baso % (Auto) 0.7 % (0.0-1.8) 05/16/21 04:32 Lymph # (Auto) 2.6 K/mm3 (1.2-5.4) 05/16/21 04:32 [place] # (Auto) 0.7 K/mm3 (0.0-0.8) 05/16/21 04:32 Eos # (Auto) 0.4 K/mm3 (0.0-0.4) 05/16/21 04:32 Baso # (Auto) 0.1 K/mm3 (0.0-0.1) 05/16/21 04:32 Seg Neutrophils % 55.2 % (40.0-70.0) 05/16/21 04:32 Seg Neutrophils # 4.6 K/mm3 (1.8-7.7) 05/16/21 04:32 PT 13.2 Sec. (12.2-14.9) 05/14/21 20:55 INR 0.91 (0.87-1.13) 05/14/21 20:55 APTT 23.8 Sec. (24.2-36.6) L 05/14/21 20:55 Thrombin Time 17.7 Sec. (15.1-19.6) 05/14/21 20:55 Sodium 137 mmol/L (137-145) 05/16/21 04:32 Potassium 4.0 mmol/L (3.6-5.0) 05/16/21 04:32 Chloride 100.5 mmol/L (98-107) 05/16/21 04:32 Carbon Dioxide 25 mmol/L (22-30) 05/16/21 04:32 Anion Gap 16 mmol/L 05/16/21 04:32 BUN 14 mg/dL (7-17) 05/16/21 04:32 Creatinine 0.9 mg/dL (0.6-1.2) 05/16/21 04:32 Estimated GFR > 60 ml/min 05/16/21 04:32 BUN/Creatinine Ratio 16 % 05/16/21 04:32 Glucose 120 mg/dL (65-100) H 05/16/21 04:32 POC Glucose 109 mg/dL (70-105) H 05/19/21 07:26 Hemoglobin A1c 6.3 % (4-6) H 05/15/21 14:37 Calcium 9.5 mg/dL (8.4-10.2) 05/16/21 04:32 Phosphorus 4.50 mg/dL (2.5-4.5) 05/16/21 04:32 Magnesium 2.10 mg/dL (1.7-2.3) 05/16/21 04:32 Total Creatine Kinase 30 units/L (30-135) 05/16/21 04:38 CK-MB (CK-2) < 1.0 ng/mL (0.0-4.0) 05/16/21 04:38 CK-MB (CK-2) Rel Index 3.3 (0-4) 05/16/21 04:38 Troponin T < 0.010 ng/mL (0.00-0.029) 05/16/21 04:38 Triglycerides 333 mg/dL (2-149) H 05/15/21 14:37 Cholesterol 188 mg/dL (50-199) 05/15/21 14:37 LDL Cholesterol Direct 111 mg/dL (50-130) 05/15/21 14:37 HDL Cholesterol 39 mg/dL (40-59) L 05/15/21 14:37 Cholesterol/HDL Ratio 4.82 % 05/15/21 14:37 Urine Color Yellow (Yellow) 05/17/21 15:32 Urine Turbidity Clear (Clear) 05/17/21 15:32 Urine pH 6.0 (5.0-7.0) 05/17/21 15:32 Ur Specific [place] 1.020 (1.003-1.030) 05/17/21 15:32 Urine Protein <15 mg/dl mg/dL (Negative) 05/17/21 15:32 Urine Glucose (UA) Negative mg/dL (Negative) 05/17/21 15:32 Urine Ketones Negative mg/dL (Negative) 05/17/21 15:32 Urine Blood Negative (Negative) 05/17/21 15:32 Urine Nitrite Neg (Negative) 05/17/21 15:32 Ur Reducing Substances Not Reportable 05/17/21 15:32 Urine Bilirubin Negative (Negative) 05/17/21 15:32 Urine Ictotest Not Reportable 05/17/21 15:32 Urine Urobilinogen < 2.0 mg/dL (<2.0) 05/17/21 15:32 Ur Leukocyte Esterase Neg (Negative) 05/17/21 15:32 Urine WBC (Auto) 1.0 /HPF (0.0-6.0) 05/17/21 15:32 Urine RBC (Auto) 2.0 /HPF (0.0-6.0) 05/17/21 15:32 U Epithel Cells (Auto) 1.0 /HPF (0-13.0) 05/17/21 15:32 Urine Bacteria (Auto) 1+ /HPF (Negative) 05/17/21 15:32 Wilkinson/IV: Voiding Method External Female Catheter Active Medications - Current Medications Current Medications: Generic Name Dose Route Start Last Admin Trade Name Freq PRN Reason Stop Dose Admin Acetaminophen 650 mg 05/15/21 00:10 05/19/21 10:11 Acetaminophen 325 Mg Tab PO 650 mg Q4H PRN Administration Pain MILD(1-3)/Fever >100.5/BOOKER Albuterol 2.5 mg 05/15/21 00:10 Albuterol 2.5 Mg/3 Ml Nebu IH Q3HRT PRN Shortness Of Breath Aspirin 81 mg 05/16/21 10:00 05/20/21 09:02 Aspirin 81 Mg Tab Chew PO 81 mg QDAY OUSMANE Administration Atorvastatin Calcium 80 mg 05/15/21 22:00 05/19/21 21:51 Atorvastatin 40 Mg Tab PO 80 mg QHS OUSMANE Administration Dextrose 50 ml 05/15/21 16:14 Dextrose 50% In Water (25gm) 50 Ml Syringe IV Q30MIN PRN Hypoglycemia Protocol Hyoscyamine 0.125 mg 05/15/21 00:15 Hyoscyamine Subl 0.125 Mg Tab SL Q6H PRN abdominal cramps and spasms Insulin Human Lispro 0 unit 05/15/21 16:30 05/20/21 07:30 Insulin Lispro 100 Unit/Ml SUB-Q Not Given ACHS OUSMANE Protocol Labetalol HCl 10 mg 05/15/21 00:10 05/15/21 00:54 Labetalol 20 Mg/4 Ml Inj IV 10 mg Q5MIN PRN Administration to maintain SBP < 180 Ondansetron HCl 4 mg 05/15/21 00:10 05/16/21 09:39 Ondansetron 4 Mg/2 Ml Inj IV 4 mg Q8H PRN Administration Nausea And Vomiting Pantoprazole Sodium 40 mg 05/19/21 10:00 05/20/21 09:03 Pantoprazole 40 Mg Tab PO 40 mg DAILY OUSMANE Administration Polyethylene Glycol 17 gm 05/17/21 11:00 05/20/21 08:47 Polyethylene Glycol 3350 17 Gm Powder PO 17 gm BID PRN Administration Constipation Senna 8.6 mg 05/17/21 11:00 05/20/21 08:48 Sennosides 8.6 Mg Tab PO 8.6 mg Q12H PRN Administration Laxative Effect Sodium Chloride 10 ml 05/15/21 10:00 05/20/21 09:03 Sodium Chloride 0.9% 10 Ml Flush Syringe IV 10 ml BID OUSMANE Administration Sodium Chloride 10 ml 05/15/21 00:10 Sodium Chloride 0.9% 10 Ml Flush Syringe IV PRN PRN LINE FLUSH
[2021-05-20] MEDS: ACETAMINOPHEN 325 MG TAB PO PRN (23:57)
--- NOTE | 2021-05-21 08:16 | Discharge Summary ---
Providers - Providers Date of Admission: 05/15/21 00:10 Attending physician: CATE EAST MD 05/15/21 00:10 Consult to Physician [CONS] Routine Comment: left mess./ ana Consulting Provider: VIRGINIE MATHEWS Physician Instructions: Reason For Exam: cva Occupational Therapy Evaluate and Treat [CONS] Routine Comment: Reason For Exam: Neuro deficits Physical Therapy Evaluation and Treat [CONS] Routine Comment: Reason For Exam: Neuro deficits 05/15/21 00:12 Speech Therapy Evaluation and Treat [CONS] Routine Reason For Exam: swallow eval 05/20/21 12:45 Consult to Case Management [CONS] Routine Services Needed at Discharge: Home Health Services Notified:: sap solution manager consultant Comment:: declining acute rehab facility placement. Would like home health care PT. Primary care physician: [facility] Hospitalization Reason for admission: Left-sided weakness Condition: Serious Hospital course: 56-year-old female with history of hypertension and CVA was brought to the hospital because of left-sided weakness. Last known well time was approximately 19:50. Patient complains of weakness of left arm and left leg. Patient also complains of decreased sensation light touch of the left upper and left lower extremity. Patient is soft-spoken but answers questions appropriately. Initial CT scan shows no acute intracranial abnormality. Subsequently Case discussed with on-call neurologist and patient is status post TPA. We are going to admit the patient to the ICU. Will consult neurology for evaluation Hospital course to date: 05/15: Patient passed swallow evaluation at bedside, speech therapy and physical therapy completed evaluations. Awaiting CT head at 2100. MRI brain on hold. RN to contact loop recorder supplier ([employer]) for interpretation and to see if MRI compatible. 05/16: Patient had repeat CT head yesterday evening which showed no acute findings. Loop recorder interrogated by [employer] rep who stated that there was no atrial fibrillation noted just some recordings of ST but nothing recent in the past couple days. Patient had several episodes of emesis and KUB was orde red which showed significant stool burden and Fleet enema/suppository ordered. Patient transferred to telemetry. MRI brain completed. Left-sided weakness/deficits continue. [facility] request orthostatic blood pressures 05/17: Hypotensive today while working with PT, likely orthostasis, ordered 1 L NS. Blood pressure improved with tradelenburg of patient. Patient nausea/vomiting resolved. Awaiting placement to SNF. CM working on arrangements. 05/18: pending rehab placement. VSS 05/19: Vital signs stable. No acute complaints. Pending rehab placement. I have asked the RN to get a reassessment by physical therapy as patient appears to have demonstrated improved strength in bilateral upper and lower extremities. 05/20: No acute medical complaints today. Declining acute rehab facility as recommended by Pt. Would like home health care pt instead. Will work with cm for arrangements. Anticipate d/c friday. 05/21: Awaiting [facility] Pt setup. Can be discharge home. Rx transmitted to pharmacy. Neuro: TIA vs Ischemic CVA s/p tPA, left sided weakness -Neurology consulted, appreciate recommendations -MRI brain pending -S/p TPA on 05/14 2099 -Initial CT head with no acute findings -Repeat CT head with no acute finding -CTA head and neck with no large vessel occlusion or significant stenosis noted -Permissive hypertension for the 24 to 48 hours -LDL profile noted -Hemoglobin A1c 6.3 - MR brain: negative for ischemic stroke -Lipitor nightly -CCM consulted, appreciate recommendation -ST/PT/OT consulted, initiate recommendations -Passed bedside swallow and speech evaluation -PT recommends wheelchair and 3 and 1 bedside commode and acute rehab -Neurochecks per protocol Cardiac: h/o HTN, hyperlipidemia -Blood pressure monitoring per protocol -Hold home lisinopril and hydrochlorothiazide -Echocardiogram with LVEF of 60 to 65% no PFO -Loop recorder in stiu -Interrogation completed which showed no atrial fibrillation Respiratory: NAD -Pulmonary hygiene -Supplemental oxygen as needed -SPO2 monitoring GI: Obesity, emesis -Cardiac diet -24 hours -870 -PPI -NTR consulted for tube feedings -BR: Colace -KUB showed stool burden -Dulcolax suppository, fleets enema : Hyponatremia (resolved) -Trend BMP -Monitor neuro status ID: NAD -Monitor WBC and temperature curve Endo: NAD -Avoid hypoglycemia Heme: NAD -Trend CBC -Transfuse hemoglobin less than 7 -Monitor for signs of bleeding -SCDs to BLE while in bed -Start antiplatelets and prophylactic coagulation 24 hours post TPA Disposition: 30 STILL A PATIENT Final Discharge Diagnosis (Prints w/discharge instructions): Acute cerebrovascular accident Time spent for discharge: 35 Core Measure Documentation - Palliative Care Palliative Care/ Comfort Measures: Not Applicable - Core Measures Any of the following diagnoses?: stroke - Stroke Discharge Requirements Statin for LDL = or >70 mg/dl on DC: Yes Anticoag for atrial fib/atrial flutter: Not Applicable Antithrombotic for ischemic stroke: Yes Exam - Physical Exam Narrative exam: General appearance: Present: no acute distress, well-nourished, obese - EENT Eyes: Present: PERRL, EOM intact ENT: hearing intact, clear oral mucosa, dentition normal - Neck Neck: Present: normal ROM - Respiratory Respiratory effort: normal Respiratory: bilateral: CTA - Cardiovascular Rhythm: regular Heart Sounds: Present: S1 & S2. Absent: systolic murmur, diastolic murmur - Extremities Extremities: no ischemia, pulses intact, pulses symmetrical, No edema, normal temperature, normal color Peripheral Pulses: within normal limits - Abdominal General gastrointestinal: soft, non-tender, non-distended, normal bowel sounds - Integumentary Integumentary: Present: warm, dry - Psychiatric Psychiatric: cooperative - Neurologic Neurologic: CNII-XII intact, focal deficits, other (Left-sided facial droop, left-sided decreased sensation, left upper extremity and lower extremity drift with weakness) - Allied Health Allied health notes reviewed: nursing, PT, ST, OT, social work - Constitutional Vitals: Temp Pulse Resp BP Pulse Ox 97.8 F 84 16 138/71 94 05/21/21 03:46 05/21/21 03:46 05/21/21 03:46 05/21/21 03:46 05/21/21 03:46 Plan Follow up with: PRIMARY MD ANTONI [Primary Care Provider] - 7 Days
[2021-05-21 09:04] VITALS: BP 155/86
[2021-05-21] MEDS: INSULIN LISPRO 100 UNIT/ML SUB-Q SCH (11:10)
[2021-05-21] MEDS: PANTOPRAZOLE 40 MG TAB PO SCH (11:11)
[2021-05-21] MEDS: ASPIRIN 81 MG TAB CHEW PO SCH (11:11)
== END 2021-05-21 14:52 | disposition home health service (06) | DRG 62 ==
LOC: ED 20:30 → CC1 05-15 00:10 → 4A 05-16 14:31
PROVIDERS: ADMIT Hospitalist; ATTEND Internal Medicine
DX: G45.9 Transient cerebral ischemic attack, unspecified (principal); E87.1 Hypo-osmolality and hyponatremia; I10 Essential (primary) hypertension; E78.5 Hyperlipidemia, unspecified; E66.9 Obesity, unspecified; Z68.32 Body mass index [BMI] 32.0-32.9, adult; I95.9 Hypotension, unspecified; Z90.710 Acquired absence of both cervix and uterus; Z79.82 Long term (current) use of aspirin; Z79.899 Other long term (current) drug therapy; Z90.49 Acquired absence of other specified parts of digestive tract
CPT/HCPCS: 36415; 70450; 70496; 70498; 70551; 74018; 80048; 80061; 81001; 82550; 82553; 82962; 83036; 83735; 84100; 84484; 85025; 85610; 85670; 85730; 93005; 93306; G0378; J3490; Q0162; C8929; C9113; J1170; J2270; J2405; J2997; J7030; Q9967

== ENCOUNTER 2021-06-16 22:53 | Emergency (ER) | payer OTHER | END 2021-06-16 23:00 | disposition left against medical advice (07) | LOC: ED 22:53 | DX: R53.1 Weakness (principal); Z53.21 Procedure and treatment not carried out due to patient leaving prior to being seen by health care provider ==